=== PATIENT | male | born 1950 | race Caucasian/White ===

== ENCOUNTER 2023-06-16 07:35 | Emergency (ER) | payer OTHER ==
--- OUTSIDE RECORDS SUMMARY | 2023-06-16 07:41 | XMS REPORT | Continuity of Care Document ---
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 rosuvastati Yes 10mg 10 mg, Univ ers n (CRESTOR) 03-06 Oral, QHS, it y of tablet 10 02:00: First dose [place] mg 00 on [facility] 03/05/23 at Branch 2100, Until Discontinu ed, Routine NaCl 0.9% 2022- No 1000mL at 100 Uni vers (NS) IV 03-05 mL/hr, IV ity of infusion 23:15: 02:14 Infusion, Masoud as 1,000 mL 00 :39 CONTINUOUS Medic al , Starting Branch on Sun03/05/23 at 1815, Until [facility] 03/05/23 at 2114, Routine acetaminoph No 975mg 975 mg, U nivers en 03-05 Oral, ONCE ity of (TYLENOL) 23:15: 22:34 NOW, 1 [place] tablet 975 00 :00 dose, On Medic al mg [facility] 03/05/23 at 1815, TATIANA NaCl 0.9% 2022- No 1000mL at 999 Uni vers (NS) bolus 03-05 mL/hr, ity of infusion 22:15: 23:20 1,000 mL, Masoud as 1,000 mL 00 :00 IV Medical Piggyback, Branch ONCE, 1 dose, On Sun03/05/23 at 1715, STAT acetaminoph 2022- Yes 650mg 650 mg, Un arabella en 03-05 Oral, ity of (TYLENOL) 22:08: Q6HPRN, [place] tablet 650 39 Starting Medic al mg on Sun Branch 03/05/23 at 1708, Until Discontinu ed, Routine, Pain (scale 1-3) non-formula 2022-0 Yes epto Memori a ry 4-18 injection, l 17:02: Refill(s) Tank 00 0 non-formula 2022-0 Yes epto Memori a ry 4-18 injection, l 17:02: Refill(s) [place] 00 0 non-formula 2022-0 Yes epto Memori a ry 4-18 injection, l 17:02: Refill(s) Tank 00 0 non-formula 2022-0 Yes epto Memori a ry 4-18 injection, l 17:02: Refill(s) Tank 00 0 non-formula 2022-0 Yes epto Memori a ry 4-18 injection, l 17:02: Refill(s) Tank 00 0 non-formula 2022-0 Yes epto Memori a ry 4-18 injection, l 17:02: Refill(s) [place] 00 0 thiamine 2022-0 Yes 100 mg = 1 Mem oria 100 mg oral 2-06 tab, PO, l tablet 15:03: Daily, X [place] 90 day, # 90 tab, 1 Refill(s), Pharmacy: [id number], 177.8, cm, 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, Height, 78.182, kg, 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, Weight thiamine 2022-0 Yes 100 mg = 1 Mem oria 100 mg oral 2-06 tab, PO, l tablet 15:03: Daily, X Tank 90 day, # 90 tab, 1 Refill(s), Pharmacy: [id number], 177.8, cm, 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, Height, 78.182, kg, 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, Weight thiamine 2022-0 Yes 100 mg = 1 Mem oria 100 mg oral 2-06 tab, PO, l tablet 15:03: Daily, X Tank 00 90 day, # 90 tab, 1 Refill(s), Pharmacy: [id number], 177.8, cm, 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, Height, 78.182, kg, 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, Weight thiamine 2022-0 Yes 100 mg = 1 Mem oria 100 mg oral 2-06 tab, PO, l tablet 15:03: Daily, X [place] day, # 90 tab, 1 Refill(s), Pharmacy: [id number], 177.8, cm, 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, Height, 78.182, kg, 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, Weight thiamine 2022-0 Yes 100 mg = 1 Mem oria 100 mg oral 2-06 tab, PO, l tablet 15:03: Daily, X [place] day, # 90 tab, 1 Refill(s), Pharmacy: [id number], 177.8, cm, 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, Height, 78.182, kg, 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, Weight thiamine 2022-0 Yes 100 mg = 1 Mem oria 100 mg oral 2-06 tab, PO, l tablet 15:03: Daily, X [place] day, # 90 tab, 1 Refill(s), Pharmacy: [id number], 177.8, cm, 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, Height, 78.182, kg, 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, Weight levETIRAcet 2022-0 Yes 1,000 mg = Memoria am 500 mg 11-09 2 tab, PO, l oral tablet 17:25: TID, TAKE H erm 2 TABLETS BY MOUTH THREE TIMES DAILY, # 540 tab, 1 Refill(s), Pharmacy: [id number], 177.8, cm, 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, Height, 78.182, kg, 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, Weight lamoTRIgine 2022-0 Yes See Memori a 100 mg oral 1-26 Instructio l tablet 17:25: ns, 2 Tank 00 tab po bid, # 90 tab, 1 Refill(s), Pharmacy: [id number], 177.8, cm, 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, Height, 78.182, kg, 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, Weight levETIRAcet 2022-0 Yes 1,000 mg = Memoria am 500 mg 1-26 2 tab, PO, l oral tablet 17:25: TID, TAKE H [place] 00 2 TABLETS BY MOUTH THREE TIMES DAILY, # 540 tab, 1 Refill(s), Pharmacy: [id number], 177.8, cm, 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, Height, 78.182, kg, 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, Weight lamoTRIgine 2022-0 Yes See Memori a 100 mg oral 1-26 Instructio l tablet 17:25: ns, 10/16 [place] 00 tab po bid, # 90 tab, 1 Refill(s), Pharmacy: [id number], 177.8, cm, 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, Height, 78.182, kg, 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, Weight lamoTRIgine 2022-0 Yes See Memori a 100 mg oral 1-26 Instructio l tablet 17:25: ns, 2 Tank 00 tab po bid, # 90 tab, 1 Refill(s), Pharmacy: [id number], 177.8, cm, 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, Height, 78.182, kg, 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, Weight levETIRAcet 2022-0 Yes 1,000 mg = Memoria am 500 mg 1-26 2 tab, PO, l oral tablet 17:25: TID, TAKE H [place] 00 2 TABLETS BY MOUTH THREE TIMES DAILY, # 540 tab, 1 Refill(s), Pharmacy: [id number], 177.8, cm, 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, Height, 78.182, kg, 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, Weight levETIRAcet 2022-0 Yes 1,000 mg = Memoria am 500 mg 1-26 2 tab, PO, l oral tablet 17:25: TID, TAKE H [place] 00 2 TABLETS BY MOUTH THREE TIMES DAILY, # 540 tab, 1 Refill(s), Pharmacy: [id number], 177.8, cm, 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, Height, 78.182, kg, 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, Weight lamoTRIgine 2022-0 Yes See Memori a 100 mg oral 1-26 Instructio l tablet 17:25: ns, 10/16 Tank 00 tab po bid, # 90 tab, 1 Refill(s), Pharmacy: [id number], 177.8, cm, 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, Height, 78.182, kg, 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, Weight levETIRAcet 0 Yes 1,000 mg = Memoria am 500 mg 1-26 2 tab, PO, l oral tablet 17:25: TID, TAKE H [place] 00 2 TABLETS BY MOUTH THREE TIMES DAILY, # 540 tab, 1 Refill(s), Pharmacy: [id number], 177.8, cm, 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, Height, 78.182, kg, 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, Weight lamoTRIgine 2022-0 Yes See Memori a 100 mg oral 1-26 Instructio l tablet 17:25: ns, 10/16 [place] 00 tab po bid, # 90 tab, 1 Refill(s), Pharmacy: [id number], 177.8, cm, 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, Height, 78.182, kg, 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, Weight levETIRAcet 0 Yes 1,000 mg = Memoria am 500 mg 1-26 2 tab, PO, l oral tablet 17:25: TID, TAKE H [place] 00 2 TABLETS BY MOUTH THREE TIMES DAILY, # 540 tab, 1 Refill(s), Pharmacy: [id number], 177.8, cm, 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, Height, 78.182, kg, 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, Weight lamoTRIgine 2022-0 Yes See Memori a 100 mg oral 1-26 Instructio l tablet 17:25: ns, 12 Tank 00 tab po bid, # 90 tab, 1 Refill(s), Pharmacy: [id number], 177.8, cm, 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, Height, 78.182, kg, 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, Weight LaMICtal 2022-0 Yes 200 mg = 1 Mem oria 200 mg oral 1-26 tab, PO, l tablet 17:24: BID, # 180 [place] nn 00 tab, 1 Refill(s), Pharmacy: [facility], 177.8, cm, 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, Height, 78.182, kg, 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, Weight LaMICtal 2022-0 Yes 200 mg = 1 Mem oria 200 mg oral 1-26 tab, PO, l tablet 17:24: BID, # 180 [place] nn 00 tab, 1 Refill(s), Pharmacy: [facility], 177.8, cm, 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, Height, 78.182, kg, 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, Weight LaMICtal 2022-0 Yes 200 mg = 1 Mem oria 200 mg oral 1-26 tab, PO, l tablet 17:24: BID, # 180 [place] nn 00 tab, 1 Refill(s), Pharmacy: [id number], 177.8, cm, 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, Height, 78.182, kg, 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, Weight LaMICtal 2022-0 Yes 200 mg = 1 Mem oria 200 mg oral 1-26 tab, PO, l tablet 17:24: BID, # 180 [place] nn 00 tab, 1 Refill(s), Pharmacy: [id number], 177.8, cm, 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, Height, 78.182, kg, 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, Weight LaMICtal Yes 200 mg = 1 Mem oria 200 mg oral 1-26 tab, PO, l tablet 17:24: BID, # 180 [place] nn 00 tab, 1 Refill(s), Pharmacy: [id number], 177.8, cm, 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, Height, 78.182, kg, 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, Weight LaMICtal Yes 200 mg = 1 Mem oria 200 mg oral -26 tab, PO, l tablet 17:24: BID, # 180 [place] nn 00 tab, 1 Refill(s), Pharmacy: [id number], 177.8, cm, 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, Height, 78.182, kg, 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, Weight Metoprolol Yes TAKE 1 Memor ia Succinate - TABLET BY l ER 25 mg 16:45: MOUTH ONCE Her mckeon oral 00 DAILY tablet, extended release warfarin 1 Yes TAEK 0.5MG M emoria mg oral -26 ON l tablet 16:45: SUN/TUES/S [place] nn 00 AT AND 1 MG ALL OTHER DAYS amLODIPine Yes 5 mg = 1 Mem oria 5 mg oral -26 tab, PO, l tablet 16:45: Daily, # [place] 00 30 tab, 0 Refill(s) Non-Formula Yes Iron, Fish Memoria ry Home 11-09 Oil, Vit l Medication 16:45: D3, Tank 00 Senna-S, Refill(s) 0 Metoprolol Yes TAKE 1 Memor ia Succinate -26 TABLET BY l ER 25 mg 16:45: MOUTH ONCE Her [place] oral 00 DAILY tablet, extended release warfarin Yes TAEK 0.5MG M emoria mg oral -26 ON l tablet 16:45: SUN/TUES/S [place] nn 00 AT AND 1 MG ALL OTHER DAYS amLODIPine 0 Yes 5 mg = 1 Mem oria 5 mg oral -26 tab, PO, l tablet 16:45: Daily, # [place] 00 30 tab, 0 Refill(s) Non-Formula Yes Iron, Fish Memoria ry Home 11-09 Oil, Vit l Medication 16:45: D3, [place] 00 Senna-S, Refill(s) 0 Metoprolol Yes TAKE 1 Memor ia Succinate 11-09 TABLET BY l ER 25 mg 16:45: MOUTH ONCE Her [place] oral 00 DAILY tablet, extended release warfarin Yes TAEK 0.5MG M emoria mg oral 11-09 ON l tablet 16:45: SUN/TUES/S [place] nn 00 AT AND 1 MG ALL OTHER DAYS amLODIPine Yes 5 mg = 1 Mem oria 5 mg oral 11-09 tab, PO, l tablet 16:45: Daily, # [place] 00 30 tab, 0 Refill(s) Non-Formula Yes Iron, Fish Memoria ry Home 11-09 Oil, Vit l Medication 16:45: D3, Tank 00 Senna-S, Refill(s) 0 Metoprolol Yes TAKE 1 Memor ia Succinate 11-09 TABLET BY l ER 25 mg 16:45: MOUTH ONCE Her [place] oral 00 DAILY tablet, extended release warfarin Yes TAEK 0.5MG M emoria mg oral 11-09 ON l tablet 16:45: SUN/TUES/S [place] nn 00 AT AND 1 MG ALL OTHER DAYS amLODIPine 0 Yes 5 mg = 1 Mem oria 5 mg oral 11-09 tab, PO, l tablet 16:45: Daily, # Tank 00 30 tab, 0 Refill(s) Non-Formula Yes Iron, Fish Memoria ry Home 11-09 Oil, Vit l Medication 16:45: D3, Tank 00 Senna-S, Refill(s) 0 Metoprolol Yes TAKE 1 Memor ia Succinate - TABLET BY l ER 25 mg 16:45: MOUTH ONCE Her [place] oral 00 DAILY tablet, extended release warfarin Yes TAEK 0.5MG M emoria mg oral 11-09 ON l tablet 16:45: SUN/TUES/S [place] 00 AT AND 1 MG ALL OTHER DAYS amLODIPine Yes 5 mg = 1 Mem oria 5 mg oral 1-26 tab, PO, l tablet 16:45: Daily, # Tank 00 30 tab, 0 Refill(s) Non-Formula Yes Iron, Fish Memoria ry Home 11-09 Oil, Vit l Medication 16:45: D3, [place] 00 Senna-S, Refill(s) 0 Metoprolol Yes TAKE 1 Memor ia Succinate 11-09 TABLET BY l ER 25 mg 16:45: MOUTH ONCE Her [place] oral DAILY tablet, extended release warfarin Yes TAEK 0.5MG M emoria mg oral 11-09 ON l tablet 16:45: SUN/TU/S [place] 00 AT AND 1 MG ALL OTHER DAYS amLODIPine Yes 5 mg = 1 Mem oria 5 mg oral 11-09 tab, PO, l tablet 16:45: Daily, # [place] 00 30 tab, 0 Refill(s) Non-Formula Yes Iron, Fish Memoria ry Home 11-09 Oil, Vit l Medication 16:45: D3, [place] 00 Senna-S, Refill(s) 0 rosuvastati 2022-0 Yes 20 mg = 1 M emoria n 20 mg - tab, PO, l oral tablet 16:44: Bedtime, # [place] 00 60 tab, 0 Refill(s) lisinopril 2022-0 Yes 10 mg = 1 Me moria 10 mg oral - tab, PO, l tablet 16:44: Daily, # Tank 00 90 tab, 0 Refill(s) rosuvastati 2022-0 Yes 20 mg = 1 M emoria n 20 mg - tab, PO, l oral tablet 16:44: Bedtime, # [place] 00 60 tab, 0 Refill(s) lisinopril 2022-0 Yes 10 mg = 1 Me moria 10 mg oral -26 tab, PO, l tablet 16:44: Daily, # Tank 00 90 tab, 0 Refill(s) rosuvastati 2022-0 Yes 20 mg = 1 M emoria n 20 mg -26 tab, PO, l oral tablet 16:44: Bedtime, # [place] 00 60 tab, 0 Refill(s) lisinopril 2023-0 Yes 10 mg = 1 Me moria 10 mg oral 1-26 tab, PO, l tablet 16:44: Daily, # Tank 00 90 tab, 0 Refill(s) rosuvastati 2023-0 Yes 20 mg = 1 M emoria n 20 mg 1-26 tab, PO, l oral tablet 16:44: Bedtime, # Tank 00 60 tab, 0 Refill(s) lisinopril 2023-0 Yes 10 mg = 1 Me moria 10 mg oral 1-26 tab, PO, l tablet 16:44: Daily, # Tank 00 90 tab, 0 Refill(s) rosuvastati 2023-0 Yes 20 mg = 1 M emoria n 20 mg 1-26 tab, PO, l oral tablet 16:44: Bedtime, # Tank 00 60 tab, 0 Refill(s) lisinopril 2023-0 Yes 10 mg = 1 Me moria 10 mg oral 1-26 tab, PO, l tablet 16:44: Daily, # [place] 00 90 tab, 0 Refill(s) rosuvastati 2023-0 Yes 20 mg = 1 M emoria n 20 mg 1-26 tab, PO, l oral tablet 16:44: Bedtime, # [place] 00 60 tab, 0 Refill(s) lisinopril 2023-0 Yes 10 mg = 1 Me moria 10 mg oral 1-26 tab, PO, l tablet 16:44: Daily, # Tank 00 90 tab, 0 Refill(s) Vital Signs Vital Name Observation Time Observation Value Comments Source Systolic blood 2023-05-21 16:32:00 160 [facility] Diastolic blood 2023-05-21 16:32:00 72 mm[Hg] [facility] 2023-05-21 16:32:00 61 /min [facility] Respiratory rate 2023-05-21 16:30:00 19 /min [facility] height 2023-05-21 16:30:00 177.8 cm [facility] Body weight 2023-05-21 16:30:00 75.751 kg [facility] BMI 2023-05-21 16:30:00 23.96 kg/m2 [facility] Oxygen saturation in 2023-05-21 16:30:00 98 /min [facility] Arterial blood by [facility] Pulse oximetry Branch Systolic blood 2023-03-12 17:46:00 121 mm[Hg] Univer sity of pressure [facility] Diastolic blood 2023-03-12 17:46:00 79 mm[Hg] Unive rsity of pressure [facility] Heart rate 2023-03-12 17:46:00 79 [facility] 2023-03-12 17:46:00 36.67 Zaira Univ ersity of [facility] Respiratory rate 2023-03-12 17:46:00 18 /min [facility] in 2023-03-12 17:46:00 96 /min [facility] Arterial blood by [facility] Pulse oximetry Branch Body weight 2023-03-12 08:28:00 74.98 kg [facility] BMI 2023-03-12 08:28:00 23.72 kg/m2 [facility] Body height 2023-03-06 01:12:00 177.8 cm [facility] Systolic (mm Hg) 2023-04-27 16:41:00 Gee angelyl Tank Diastolic (mm Hg) 2023-04-27 16:41:00 Mem orial Tank Heart Rate 2023-04-27 16:41:00 Memorial Tank Systolic (mm Hg) 2023-01-30 16:34:00 Geedarrel hernandez Tank Diastolic (mm Hg) 2023-01-30 16:34:00 Mem orial [place] Heart Rate 2023-01-30 16:34:00 Memorial [place] Height 2023-01-30 16:34:00 5 [ft_i] Memorial Tank Weight 2023-01-30 16:34:00 Memorial Tank BMI Calculated 2023-01-30 16:34:00 Memori al [place] BMI Calculated 2022-12-19 17:11:00 Norma al [place] Systolic (mm Hg) 2022-12-19 17:11:00 Gee rial Tank Diastolic (mm Hg) 2022-12-19 17:11:00 Mem orial Tank Heart Rate 2022-12-19 17:11:00 Memorial [place] Height 2022-12-19 17:11:00 5 [ft_i] Memorial [place] Weight 2022-12-19 17:11:00 Memorial [place] Systolic (mm Hg) 2022-11-09 16:38:00 Gee hernandez [place] Diastolic (mm Hg) 2022-11-09 16:38:00 Mem orial [place] Heart Rate 2022-11-09 16:38:00 Memorial Tank Height 2022-11-09 16:38:00 5 [ft_i] Memorial [place] Weight 2022-11-09 16:38:00 Memorial [place] BMI Calculated 2022-11-09 16:38:00 Kathyori al [place] Procedures Procedure Date / Time Performing Clinician Source Performed XR CHEST 2 VW 2023-05-30 16:24:00 [facility] ASSIGNMENT OF BENEFITS 2023-05-21 16:20:21 Doctor Unassigned, Un [facility] BASIC METABOLIC PANEL (NA, 2023-03-12 08:40:00 Yani Lynch [facility] K, CL, CO2, GLUCOSE, BUN, Medica l Branch CREATININE, CA) CBC WITH DIFF 2023-03-12 08:40:00 Yani Lynch [facility] PROTHROMBIN TIME / INR 2023-03-12 08:40:00 Minh Landry [facility] BASIC METABOLIC PANEL (NA, 2023-03-11 09:17:00 Yani Lynch [facility] K, CL, CO2, GLUCOSE, BUN, Medica l Branch CREATININE, CA) CBC WITH DIFF 2023-03-11 09:17:00 Yani Lynch [facility] PROTHROMBIN TIME / INR 2023-03-11 09:17:00 Amy Lancaster [facility] XR CHEST 1 VW 2023-03-10 13:39:18 Minh Landry [facility] BASIC METABOLIC PANEL (NA, 2023-03-10 09:56:00 Minh Landry [facility] K, CL, CO2, GLUCOSE, BUN, Medica l Branch CREATININE, CA) CBC WITH DIFF 2023-03-10 09:56:00 Minh Landry [facility] PROTHROMBIN TIME / INR 2023-03-10 09:56:[address] [facility] TROPONIN I 2023-03-09 22:20:00 Minh Landry [facility] TRANSFUSE PACKED RBC 2023-03-09 18:11:00 Minh Landry [facility] PREPARE PACKED RBC 2023-03-09 18:06:36 Minh Landry [facility] HB ECG ROUTINE & RHYTHM 2023-03-09 17:12:12 [facility]23-03-09 15:11[facility] 2023-03-09 15:11:00 [facility] BASIC [facility]ABOLIC PANEL (NA, 2023-03-09 08:27:00 Minh Landry [facility] K, CL, CO2, GLUCOSE, BUN, [facility] CREATININE, CA) CBC WITH DIFF 2023-03-09 08:27:00 Minh Landry [facility] PROTHROMBIN TIME / INR 2023-03-09 08:27:00 Amy Lancaster [facility] N-TERMINAL PRO-BNP 2023-03-09 08:27:00 Minh Landry [facility] BASIC METABOLIC PANEL (NA, 2023-03-08 09:43:00 Yani Lynch [facility] K, CL, CO2, GLUCOSE, BUN, [facility] CREATININE, CA) CBC WITH DIFF 2023-03-08 09:43:00 Yani Lynch [facility] PROTHROMBIN TIME / INR 2023-03-08 09:43:00 Amy Lancaster [facility] BLOOD CULTURE SCREEN 2023-03-07 19:45:[address] [facility] BLOOD CULTURE SCREEN 2023-03-07 17:21:00 Syde, Yani Judith [facility] PROTHROMBIN TIME / INR 2023-03-07 17:20:00 Annie Gilmore [facility] CT THORAX WO CONTRAST 2023-03-07 16:09:36 [facility] BASIC METABOLIC PANEL (NA, 2023-03-07 10:06:00 Yani Lynch [facility] K, CL, CO2, GLUCOSE, BUN, Medica Branch CREATININE, CA) CBC WITH DIFF 2023-03-07 10:06:00 Yani Lynch [facility] PROTEIN CREAT RATIO URINE 2023-03-06 22:40:00 Dayday Olsen [facility] URIC ACID 2023-03-06 18:39:00 Dayday Olsen [facility] CORTISOL AM 2023-03-06 18:39:00 Dayday Olsen [facility] INTACT PTH CALCIUM GROUP 2023-03-06 18:39:00 Dayday Olsen [facility] PROTHROMBIN TIME / INR 2023-03-06 18:39:00 Amy Lancaster [facility] TRANSTHORACIC ECHO (TTE) 2023-03-06 13:40:00 Jacobo Donaldson [facility] US RETROPERITONEAL 2023-03-06 12:30:00 Jacobo Donaldson [facility] PHOSPHORUS 2023-03-06 10:12:00 Jacobo Donaldson [facility] MAGNESIUM 2023-03-06 10:12:00 Jacobo Donaldson [facility] TROPONIN I 2023-03-06 10:12:00 Jacobo Donaldson [facility] HEPATIC FUNCTION PANEL 2023-03-06 10:12:00 Jacobo Donaldson [facility] ([id number]) (ALB,T.PRO,BIL Medical [place] T,BU/BC,ALT,AST,ALK PHOS) BASIC METABOLIC PANEL (NA, 2023-03-06 10:12:00 Jacobo Donaldson [facility] K, CL, CO2, GLUCOSE, BUN, Medica l Branch CREATININE, CA) CBC WITH DIFF 2023-03-06 10:12:00 Jacobo Donaldson [facility] KEPPRA (LEVETIRACETAM) 2023-03-06 10:12:00 Ulisses [facility] N-TERMINAL PRO-BNP 2023-03-06 10:12[facility]00 [facility] 2023-03-06 03:07:00 Lotus [facility] PROCALCITONIN 2023-03-06 03:07:00 [facility]FIR[facility] (LAB 2023-03-05 23:28:00 Jacobo Doanldson [facility] RAPID INFLUENZA A/B 2023-03-05 22:22:00 [facility], LEVEL 2023-03-05 22:19:00 Jacobo Donaldson [facility] FOLATE 2023-03-05 22:19:00 Ltous Jacobo [facility] TROPONIN I 2023-03-05 22:19:00 Stan [facility] DIFF CONSULT BY 2023-03-05 22:19:00 Lotus [facility] CBC WITH DIFF 2023-03-05 22:19:00 Lotus [facility] VITAMIN D, 25-OH 2023-03-05 22:19:00 Lotus [facility] DIFF CONSULT 2023-03-05 22:19:00 Jacobo Donaldson [facility] INTERPRETATION [facility] XR CHEST 1 VW 2023-03-05 22:18:43 Stan [facility] PROTHROMBIN TIME / INR 2023-03-05 21:58:00 Stan [facility] ACTIVATED PARTIAL THRMPLAS 2023-03-05 21:58:00 Jacobo Donaldson [facility] HB ABO GROUPING 2023-03-05 21:43:00 Stan, [facility] EKG-12 LEAD 2023-03-05 21:23:10 Lotus [facility] URINALYSIS 2023-03-05 20:35:00 Stan [facility] ASSIGNMENT OF BENEFITS 2023-03-05 19:59:23 Doctor Unassigned, [facility] NOTICE OF PRIVACY 2023-03-05 19:58:53 Doctor Unassigned, [facility] PRACTICES [facility] CONSENT/REFUSAL FOR 2023-03-05 19:58:36 Doctor Unassigned, [facility] DIAGNOSIS AND TREATMENT [place] [facility] MAGNESIUM 2023-03-05 19:54:00 Stan [facility] FERRITIN SERUM 2023-03-05 19:54:00 Lotus [facility] TROPONIN I 2023-03-05 19:54:00 Stan [facility] THYROID STIMULATING 2023-03-05 19:54:00 Jacobo oDnaldson [facility] HORMONE [facility] Branch COMP. METABOLIC PANEL 2023-03-05 19:54:00 Les Pierce [facility] ([id number]) [facility] IRON PANEL 2023-03-05 19:54:00 Jacobo Donaldson [facility] CBC WITH DIFF 2023-03-05 19:54:00 Stan [facility] RETICULOCYTES AUTOMATED 2023-03-05 19:54:00 Jacobo Donaldson [facility] N-TERMINAL PRO-BNP 2023-03-05 19:54:00 Les Pierce [facility] COVID-19 (ID NOW RAPID 2023-03-05 19:54:00 Stan [facility] TESTING) Medical Branch LAB ONLY COVID 2023-03-05 19:54:00 Stan Les [facility] INTERPRETATION [facility] Carotid artery [facility] assessment<sup>1</sup> Valves of heart and [facility] operations<sup>2</sup> Encounters Start End Encounter Admission Attending Care Care Encounter Source Date/Time Date/Time Type Type Clinicians Facility Department ID 2023-08-09 2023-08-09 Outpatient MHIE MHIE [id number] [facility] 13:45:00 13:45:00 06 royal Tank 2023-08-09 2023-08-09 Outpatient MHIE MHIE [id number] Memoria 13:45:00 13:45:00 06 royal Tank 2023-05-30 2023-05-30 Outpatient R NICHOLE ALFARO [facility] 10 [id number] Univers 11:00:00 23:59:00 NICHOLE ALFARO i ty of [facility] 2023-05-30 2023-05-30 Hospital [facility] 1.2.840.114 [id number] Univers 11:00:00 23:59:00 Encounter [facility] 350.1.13.10 ity of [place] 4.2.7.2.686 Masoud as EMERY?BLEA [id number] Ri dicmagalis MENDEZEY [address] [place] [facility] 2023-05-21 2023-05-21 Outpatient R NICHOLE ALFARO [facility] 10 [id number] Univers 11:30:00 11:45:57 NICHOLE ALFARO i ty of [facility] 2023-05-21 2023-05-21 Office [facility] 1.2.840.114 [id number] Univers 11:30:00 11:45:57 Visit [facility] 350.1.13.10 i ty [facility] 4[place]2.7.2.[place] [id number] Ri dical KHADAR 085 [facility] 2023-05-21 2023-05-21 Orders Doctor MERI 1.2.840.114 [id number] Univers 00:00:00 00:00:00 Only Unassigned, JOSELYN 350.1.13.10 ity of [place] [facility] 4.2.7.2.686 Masoud as [id number] [address] 2023-04-27 2023-04-28 Outpatient MHIE MNA [id number] Memoria 16:45:00 04:59:59 Neurology 05 l Deja Fu 2023-04-27 2023-04-28 Outpatient MHIE MNA [id number] Memoria 16:45:00 04:59:59 Neurology 05 l Deja Fu 2023-04-27 2023-04-27 Outpatient JOANNE SimmsSCHER MHMISCHER [id number] 11:45:00 23:59:59 Vinod Mireya Roque 2023-04-27 2023-04-27 Outpatient MHIE MHIE [id number] Memoria 11:45:00 11:45:00 05 royal Fu 2023-03-12 2023-03-29 Inpatient 3 [place] [id number] [facility] 17:29:00 10:15:00 JAMESON 0529 Health Rehabil itation Jeana calero 2023-03-14 2023-03-14 Transition ADRIA Mckoy 1.2.840.114 [id number] Univers 00:00:00 00:00:00 of Care Vivian GUERRERO 350.1.13.10 it y of [place] 4.2.7.2.686 [facility] [id number] [facility] [address] 2023-03-05 2023-03-12 Hospital Stan, Les [facility] 1.2.840. 114 [id number] Univers 14:04:00 16:15:00 Encounter Jacobo Donaldson 350.1.13.10 ity of [place] 4.2.7.2.686 [facility] [id number] [facility] 0[address] Branch 2023-03-05 2023-03-12 Inpatient X BLAISE [facility] [id number] Univers 14:04:00 16:15:00 DACIA hassan [facility] 2023-01-30 2023-01-31 Outpatient MHIE MNA [id number] Memoria 16:30:00 04:59:59 Neurology 04 l Deja Gantann 2023-01-30 2023-01-31 Outpatient MHIE MNA [id number] Memoria 16:30:00 04:59:59 Neurology 04 l Deja Fu 2023-01-30 2023-01-30 Outpatient ANETTE Simms MHMISCHER [id number] 11:30:00 23:59:59 Vinod Shanel Roque 2023-01-30 2023-01-30 Outpatient MHIE MHIE [id number] Memoria 11:30:00 11:30:00 04 royal Fu 2022-12-19 2022-12-20 Outpatient MHIE MNA [id number] Memoria 17:15:00 05:59:59 Neurology 02 l Deja Fu 2022-12-19 2022-12-20 Outpatient MHIE MNA [id number] Memoria 17:15:00 05:59:59 Neurology 02 l Deja Fu 2022-12-19 2022-12-19 [facility] [id number] 11:15:00 23:59:59 Vinod Jude 2022-12-19 2022-12-19 Outpatient MHIE MHIE [id number] Memoria 11:15:00 11:15:00 02 royal Fu 2022-12-08 2022-12-09 Outpatient MHIE MNA [id number] Memoria 19:00:00 05:59:59 Neurology 03 l Deja Fu 2022-12-08 2022-12-09 Outpatient MHIE MNA [id number] Memoria 19:00:00 05:59:59 Neurology 03 l Deja Fu 2022-12-08 2022-12-08 [facility] [id number] 13:00:00 23:59:59 Vinod 03 Jude 2022-12-08 2022-12-08 Outpatient MHIE MHIE [id number] Memoria 13:00:00 13:00:00 03 royal Fu 2022-11-09 2022-11-10 Outpatient MHIE MNA [id number] Memoria 16:30:00 05:59:59 Neurology 01 royal Fu 2022-11-09 2022-11-10 Outpatient MHIE MNA [id number] Memoria 16:30:00 05:59:59 Neurology 01 royal Fu 2022-11-09 2022-11-09 [facility] 213 [id number] 10:30:00 23:59:59 Vinod Jude 2022-11-09 2022-11-09 Outpatient MHIE MHIE [id number] Memoria 10:30:00 10:30:00 01 l Tank 2022-09-29 2022-09-29 Ambulatory MHIE MNA [id number] Memoria 19:30:00 19:30:00 Pre-Reg Neurology 00 l Deja Fu 2022-09-29 2022-09-29 Ambulatory MHIE MNA [id number] Memoria 19:30:00 19:30:00 Pre-Reg Neurology 00 l Deja Fu 2022-09-29 2022-09-29 Outpatient IE IE [id number] Memoria 13:30:00 13:30:00 00 l Tank 2022-09-29 2022-09-29 Outpatient [facility] [id number] 13:30:00 13:30:00 Vinod 00 Jude Results Test Description Test Time Test Comments Results Result Comments Source Prepare Packed RBC (in units), 1 Units 2023-03-09 18:06:36 Test Item Value Reference Range Interpretation Comme nts Cross Match Result (test code = Compatible 4409) ISBT Blood Type Code (test code = 6200 077904) Unit Blood Type (test code = 4410) A Pos Unit Number (test code = 4411) [id number] Blood Expiration Date & Time (test 895559404506 code = 013728) Status Information (test code = Issued 4411) Product Identification (test code = Red Blood Cells 4413) Product Code (test code = 4414) [id number] Performed at [facility] Laboratory Services - [facility] Blood [address] [place] [id number] Free: [phone] 266CLIA No. [id number] [facility] Center[facility]th[facility]bin Time / [id number] 11:49:07 Test Item Value Reference Range Interpretation Comments PROTIME PATIENT (test 17.8 See_Comment H [Auto mated message] code = 5964-2) The system [employer] generated this result transmitted ref erence range: 12.0 - 1 4.7 Seconds. The reference range was not used to int erpret this result as normal/abnormal . INR (test code = 6301-6) 1.5 Nor mal INR <1.1; Warfarin Therap eutic range 2.0 to 3. 0 or 2.5 to 3.5, dep ending upon the indica tions. Lab Interpretation (test Abnormal code = 20758-3) [facility] WITH [id number] 10:52:21 Test Item Value Reference Range Interpretation Comments WBC (test code = 2.99 See_Comment L [Automated 6690-2) message] The sy stem which generated this result transmitted reference range : 4.20 - 10.70 10*3/?L. The reference range was not used to interpret this result as normal/abnormal . RBC (test code = 2.27 See_Comment L [Automated 789-8) message] The sy stem which generated this result transmitted reference range : 4.26 - 5.52 10*6/?L. The reference range was not used to interpret this result as normal/abnormal . HGB (test code = 6.9 g/dL 12.2-16.4 L 718-7) HCT (test code = 19.9 % 38.4-49.3 L 4544-3) MCV (test code = 87.7 fL 81.7-95.6 787-2) MCH (test code = 30.4 pg 26.1-32.7 785-6) MCHC (test code = 34.7 g/dL 31.2-35.0 786-4) RDW-SD (test code = 47.7 fL 38.5-51.6 34926-2) RDW-CV (test code = 14.9 % 12.1-15.4 788-0) PLT (test code = 59 See_Comment L [Automated 777-3) message] The sy stem which generated this result transmitted reference range : 150 - 328 10*3/ ?L. The reference r walker was not used to interpret this result as normal/abnormal . MPV (test code = 10.7 fL 9.8-13.0 09977-5) IPF % (test code = 3.5 % 1.2-10.7 Platelet count 8493205660) measured by fluorescence method. NRBC/100 WBC (test 0.0 See_Comment [Automat ed code = 5916701213) message] The system which generated this result transmitted reference range : 0.0 - 10.0 /100 WBCs. The refer ence range was not u sed to interpret th is result as normal/abnormal . NRBC x10^3 (test code See_Comment [Auto mated = 4322505935) message] The s ystem which generated this result transmitted reference range : 10*3/?L. The reference range was not used to interpret this result as normal/abnormal . GRAN MAT (NEUT) % 67.0 % (test code = 770-8) IMM GRAN % (test code 1.30 % = 9412322927) LYMPH % (test code = 23.1 % 736-9) MONO % (test code = 7.0 % 5905-5) EOS % (test code = 1.3 % 713-8) BASO % (test code = 0.3 % 706-2) GRAN MAT x10^3(ANC) 2.00 10*3/uL 1.99-6.95 (test code = 6890463322) IMM GRAN x10^3 (test 0.04 10*3/uL 0.00-0.06 code = 7950418408) LYMPH x10^3 (test code 0.69 10*3/uL 1.09-3.23 L = 731-0) MONO x10^3 (test code 0.21 10*3/uL 0.36-1.02 L = 742-7) EOS x10^3 (test code = 0.04 10*3/uL 0.06-0.53 L 711-2) BASO x10^3 (test code 0.01-0.09 = 704-7) Lab Interpretation Abnormal (test code = 38891-5) [facility] [id number] 10:19:17 Test Item Value Reference Range Interpretation Comments NT-proBNP (test code = 63113 pg/mL <=125 H 9056281571) GISSEL (test code = GISSEL) Biotin has been reported to cause a negative bias, interpret results relative to patient's use of biotin. Lab Interpretation (test Abnormal code = 32404-6) [facility] Center[facility] MET[facility]OLIC PANEL (NA, K, CL, CO2, GLUCOSE, BUN, CREATININE, CA)2023-03-09 10:15:35 Test Item Value Reference Range Interpretation Comments NA (test code = 132 mmol/L 135-145 L 5860911182) K (test code = 4.0 mmol/L 3.5-5.0 1362423456) CL (test code = 102 mmol/L 98-108 4321155697) CO2 TOTAL (test code = 20 mmol/L 23-31 L 0565589199) AGAP (test code = 10 2-16 4314186558) BUN (test code = 34 mg/dL 7-23 H 3956997829) GLUCOSE (test code = 104 mg/dL 70-110 6522862272) CREATININE (test code = 2.76 mg/dL 0.60-1.25 H 7256278104) CALCIUM (test code = 8.7 mg/dL 8.6-10.6 5381413161) eGFR (test code = 22.6 mL/min/1.73m2 8704658529) GISSEL (test code = GISSEL) Association of Glomerular Filtration Rate (GFR) and Staging of Kidney Disease* + --+ --+ ------+| GFR (mL/min/1.73 m2) ?| With Kidney Damage ?| ?Without Kidney Damage+ --------+ --------+ +| ?>90 ?| ?Stage one ?| ? Normal ?+ ---+ ---+ -------+| ?60-89 ?| ?Stage two ?| ? Decreased GFR ? + --+ --+ ------+| ?30-59 ?| ?Stage three ?| ? Stage three ? + --+ --+ ------+| ?15-29 ?| ?Stage four ? | ? Stage four ?+ ---+ ---+ -------+| ?<15 (or dialysis) ? ?| ?Stage five ? | ? Stage five ?+ ---+ ---+ -------+ *Each stage assumes the associated GFR level has been in effect for at least three months. ?Stages 1 to 5, with or without kidney disease, indicate chronic kidney disease. Notes: Determination of stages one and two (with eGFR >59mL/min/1.73 m2) requires estimation of kidney damage for at least three months as defined by structural or functional abnormalities of the kidney, manifested by either:Pathological abnormalities or Markers of kidney damage (including abnormalities in the composition of the blood or urine or abnormalities in imaging tests). Lab Interpretation Abnormal (test code = 02460-4) [facility] CenterDIFF CONSULT [id number] 20:13:16 ABSOLUTE NEUTROPHILIA, LYMPHOPENIA AND EOSINOPENIA. NORMOCYTIC HYPERCHROMIC ANEMIA. THROMBOCYTOPENIA. NO CLUMPING IDENTIFIED.[facility] CenterFOLATE2023-05-23 07:43:38 Test Item Value Reference Range Interpretation Comments FOLATE SER (test code = 16.3 ng/mL 3.0-20.0 4422496956) Lab Interpretation (test code = Normal 79113-8) [facility] CenterVITAMIN B12, [id number] 06:00:10 Test Item Value Reference Range Interpretation Comments VIT B12 (test code = 653 pg/mL 240-930 8359160667) GISSEL (test code = GISSEL) Biotin has been reported to cause a positive bias, interpret results relative to patient's use of biotin. Lab Interpretation (test Normal code = 86904-6) [facility] CenterVITAMIN D, [id number] 05:54:05 Test Item Value Reference Range Interpretation Comments VIT D 25OH (test code = 55 ng/mL 25-80 12633-1) GISSEL (test code = GISSEL) Deficiency: <20 ng/mLInsufficiency : 20-24 ng/mLOptimal: 25-80 ng/mL Lab Interpretation (test Normal code = 63316-4) [facility] CenterCBC WITH [id number] 00:10:07 Test Item Value Reference Range Interpretation Comments WBC (test code = 9.20 See_Comment [Automated 0742-2) message] The sy stem which generated this result transmitted reference range : 4.20 - 10.70 10*3/?L. The reference range was not used to interpret this result as normal/abnormal . RBC (test code = 2.70 See_Comment L [Automated 771-8) message] The sy stem which generated this result transmitted reference range : 4.26 - 5.52 10*6/?L. The reference range was not used to interpret this result as normal/abnormal . HGB (test code = 8.4 g/dL 12.2-16.4 L 718-7) HCT (test code = 23.8 % 38.4-49.3 L 4544-3) MCV (test code = 88.1 fL 81.7-95.6 787-2) MCH (test code = 31.1 pg 26.1-32.7 785-6) MCHC (test code = 35.3 g/dL 31.2-35.0 H 786-4) RDW-SD (test code = 47.6 fL 38.5-51.6 78476-2) RDW-CV (test code = 15.4 % 12.1-15.4 788-0) PLT (test code = 54 See_Comment L [Automated 777-3) message] The sy stem which generated this result transmitted reference range : 150 - 328 10*3/ ?L. The reference r walker was not used to interpret this result as normal/abnormal . MPV (test code = 11.0 fL 9.8-13.0 51349-3) NRBC/100 WBC (test 0.0 See_Comment [Automat ed code = 3408540327) message] The system which generated this result transmitted reference range : 0.0 - 10.0 /100 WBCs. The refer ence range was not u sed to interpret th is result as normal/abnormal . NRBC x10^3 (test code See_Comment [Auto mated = 3415331029) message] The s ystem which generated this result transmitted reference range : 10*3/?L. The reference range was not used to interpret this result as normal/abnormal . GRAN MAT (NEUT) % 86.8 % (test code = 770-8) IMM GRAN % (test code 0.70 % = 3476850275) LYMPH % (test code = 5.5 % 736-9) MONO % (test code = 6.7 % 5905-5) EOS % (test code = 0.2 % 713-8) BASO % (test code = 0.1 % 706-2) GRAN MAT x10^3(ANC) 7.98 10*3/uL 1.99-6.95 H (test code = 6479160070) IMM GRAN x10^3 (test 0.06 10*3/uL 0.00-0.06 code = 0611171767) LYMPH x10^3 (test code 0.51 10*3/uL 1.09-3.23 L = 731-0) MONO x10^3 (test code 0.62 10*3/uL 0.36-1.02 = 742-7) EOS x10^3 (test code = 0.06-0.53 L 711-2) BASO x10^3 (test code 0.01-0.09 = 704-7) Lab Interpretation Abnormal (test code = 99560-5) [facility] CenterTROPONIN [id number] 23:49:36 Test Item Value Reference Range Interpretation Comments TROPONIN I (test code = 0.701 ng/mL <=0.034 H 4416759724) GISSEL (test code = GISSEL) Reference (Normal) Range (defined by the 99th percentile reference limit): <= 0.034 ng/mL Note: Cardiac troponin begins to rise 3-4 hours after the onset of ischemia. Repeat in 4-6 hours if the sample was drawn within 3-4 hours of the onset of the symptom and found normal. Diagnosis of myocardial injury is made with acute changes in cTn concentrations with at least one serial sample above the 99th percentile upper reference limit (URL), taken together with the patient's clinical presentation. Biotin has been reported to cause a negative bias, interpret results relative to patient's use of biotin. Lab Interpretation Abnormal (test code = 23585-7) [facility] CenterIRON [id number] 23:24:15 Test Item Value Reference Range Interpretation Comments IRON (test code = 6768167709) 16 ug/dL 50-160 L TIBC (test code = 4681762834) 210 ug/dL 250-410 L % FE SAT (test code = 6305310141) 8 % 20-50 L Lab Interpretation (test code = Abnormal 66135-7) [facility] CenterFERRITIN [id number] 23:14:57 Test Item Value Reference Range Interpretation Comments FERRITIN (test code = 138.0 ng/mL 18.0-464.0 5730177626) GISSEL (test code = GISSEL) Biotin has been reported to cause a negative bias, interpret results relative to patient's use of biotin. Lab Interpretation (test Normal code = 98442-4) [facility] CenterTHYROID STIMULATING [id number] 23:10:32 Test Item Value Reference Range Interpretation Comments TSH (test code = 1.40 See_Comment [Automated message] 1072183689) The system whic h generated this result transmitted ref erence range: 0.45 - 4 .70 mIU/L. The refe rence range was not u sed to interpret this result as normal/abnor mal. Lab Interpretation (test Normal code = 30774-0) [facility] CenterN-TERMINAL [id number] 23:09:10 Test Item Value Reference Range Interpretation Comments NT-proBNP (test code = 8220 pg/mL <=125 H 0019886087) GISSEL (test code = GISSEL) Biotin has been reported to cause a negative bias, interpret results relative to patient's use of biotin. Lab Interpretation (test Abnormal code = 21125-8) [facility] CenterRETICULOCYTES [id number] 22:37:52 Test Item Value Reference Range Interpretation Comments RETIC Count Automated 3.80 % 0.59-2.24 H (test code = 8359609148) RETIC Absolute Count 0.0977 See_Comment [Autom ated message] (test code = 4466770833) The system which generated this result transmitted ref erence range: 0.0260 - 0.1170 10*6/?L. The reference range was not used to int erpret this result as normal/abnormal . IRF % (test code = 23.90 % 2.00-19.10 H 2018469117) RETIC-HE (test code = 32.4 pg 27.3-36.4 9261246932) Lab Interpretation (test Abnormal code = 48811-7) [facility] CenterType and Screen - ONCE [id number] 22:09:00 Test Item Value Reference Range Interpretation Comments ABO & RH (test code = 20) A Positive IAT (test code = 1185) Negative [facility] CenterCBC WITH [id number] 21:18:57 Test Item Value Reference Range Interpretation Comments WBC (test code = 7.00 See_Comment [Automated 2890-2) message] The sy stem which generated this result transmitted reference range : 4.20 - 10.70 10*3/?L. The reference range was not used to interpret this result as normal/abnormal . RBC (test code = 2.58 See_Comment L [Automated 221-8) message] The sy stem which generated this result transmitted reference range : 4.26 - 5.52 10*6/?L. The reference range was not used to interpret this result as normal/abnormal . HGB (test code = 7.8 g/dL 12.2-16.4 L 718-7) HCT (test code = 22.8 % 38.4-49.3 L 4544-3) MCV (test code = 88.4 fL 81.7-95.6 787-2) MCH (test code = 30.2 pg 26.1-32.7 785-6) MCHC (test code = 34.2 g/dL 31.2-35.0 786-4) RDW-SD (test code = 47.0 fL 38.5-51.6 75862-3) RDW-CV (test code = 15.4 % 12.1-15.4 788-0) PLT (test code = 53 See_Comment L [Automated 777-3) message] The sy stem which generated this result transmitted reference range : 150 - 328 10*3/ ?L. The reference r walker was not used to interpret this result as normal/abnormal . MPV (test code = 10.7 fL 9.8-13.0 81931-9) IPF % (test code = 3.7 % 1.2-10.7 Platelet count 0200548483) measured by fluorescence method. NRBC/100 WBC (test 0.0 See_Comment [Automat ed code = 9888721282) message] The system which generated this result transmitted reference range : 0.0 - 10.0 /100 WBCs. The refer ence range was not u sed to interpret th is result as normal/abnormal . NRBC x10^3 (test code See_Comment [Auto mated = 2777868329) message] The s ystem which generated this result transmitted reference range : 10*3/?L. The reference range was not used to interpret this result as normal/abnormal . SEG % (test code = 85 % 33-76 H 50429-4) LYMPH % (test code = 8 % 14-54 L 79106-1) MONO % (test code = 7 % 0-4 H 94453-9) ANC (test code = 5.81 10*3/uL 1.99-6.95 753-4) PLT ESTIMATE (test Decreased Normal A code = 9317-9) Lab Interpretation Abnormal (test code = 57733-8) [facility] CenterTROPONIN [id number] 20:46:08 Test Item Value Reference Range Interpretation Comments TROPONIN I (test code = 0.659 ng/mL <=0.034 H 3359209698) GISSEL (test code = GISSEL) Reference (Normal) Range (defined by the 99th percentile reference limit): <= 0.034 ng/mL Note: Cardiac troponin begins to rise 3-4 hours after the onset of ischemia. Repeat in 4-6 hours if the sample was drawn within 3-4 hours of the onset of the symptom and found normal. Diagnosis of myocardial injury is made with acute changes in cTn concentrations with at least one serial sample above the 99th percentile upper reference limit (URL), taken together with the patient's clinical presentation. Biotin has been reported to cause a negative bias, interpret results relative to patient's use of biotin. Lab Interpretation Abnormal (test code = 47239-6) [facility] CenterMAGNESIUM2023-05-22 20:35:05 Test Item Value Reference Range Interpretation Comments MAGNESIUM (test code = 5825578468) 1.7 mg/dL 1.7-2.4 Lab Interpretation (test code = Normal 80560-9) [facility] CenterCOMP. METABOLIC PANEL (49294)2023-03-05 20:34:23 Test Item Value Reference Range Interpretation Comments NA (test code = 130 mmol/L 135-145 L 0468299970) K (test code = 4.4 mmol/L 3.5-5.0 9801117246) CL (test code = 97 mmol/L 98-108 L 5147213215) CO2 TOTAL (test code = 23 mmol/L 23-31 8386211039) AGAP (test code = 10 2-16 2572183491) BUN (test code = 32 mg/dL 7-23 H 3600349445) GLUCOSE (test code = 121 mg/dL 70-110 H 5638806411) CREATININE (test code = 2.58 mg/dL 0.60-1.25 H 0955097003) TOTAL BILI (test code = 0.7 mg/dL 0.1-1.1 1308159431) CALCIUM (test code = 8.8 mg/dL 8.6-10.6 7605814823) T PROTEIN (test code = 6.2 g/dL 6.3-8.2 L 2896423145) ALBUMIN (test code = 3.5 g/dL 3.5-5.0 5851032961) ALK PHOS (test code = 85 U/L 34-122 7616931279) ALTv (test code = 26 U/L 5-50 1742-6) AST(SGOT) (test code = 28 U/L 13-40 1372713061) eGFR (test code = 24.5 mL/min/1.73m2 7553632683) GISSEL (test code = GISSEL) Association of Glomerular Filtration Rate (GFR) and Staging of Kidney Disease* + --+ --+ ------+| GFR (mL/min/1.73 m2) ?| With Kidney Damage ?| ?Without Kidney Damage+ --------+ --------+ +| ?>90 ?| ?Stage one ?| ? Normal ?+ ---+ ---+ -------+| ?60-89 ?| ?Stage two ?| ? Decreased GFR ? + --+ --+ ------+| ?30-59 ?| ?Stage three ?| ? Stage three ? + --+ --+ ------+| ?15-29 ?| ?Stage four ? | ? Stage four ?+ ---+ ---+ -------+| ?<15 (or dialysis) ? ?| ?Stage five ? | ? Stage five ?+ ---+ ---+ -------+ *Each stage assumes the associated GFR level has been in effect for at least three months. ?Stages 1 to 5, with or without kidney disease, indicate chronic kidney disease. Notes: Determination of stages one and two (with eGFR >59mL/min/1.73 m2) requires estimation of kidney damage for at least three months as defined by structural or functional abnormalities of the kidney, manifested by either:Pathological abnormalities or Markers of kidney damage (including abnormalities in the composition of the blood or urine or abnormalities in imaging tests). Lab Interpretation Abnormal (test code = 43599-1) [facility]"
[2023-06-16 08:14] LABS: Absolute Lymphocytes (CBC) 0.9 K/uL (0.7-4.9); Hematocrit 25.5 % (39.6-49.0); Lymphocytes % 15.5 % (15.3-44.8); MCV 87.7 fL (80-100); MPV 7.2 fL (7.6-11.3); Platelets 75 thou/uL (152-406); RBC Red Blood Cell Count 2.91 M/uL (4.33-5.43)
[2023-06-16 08:25] LABS: Albumin 3.4 g/dL (3.4-5.0); Bilirubin Direct 0.2 mg/dL (0-0.2); Bilirubin Indirect, Calculated 0.2 mg/dL (0.2-0.8); Bilirubin Total 0.4 mg/dL (0.2-1.0); Magnesium 1.9 mg/dL (1.6-2.4); Potassium 4.2 mEq/L (3.5-5.1); Protein, Total 7.3 g/dL (6.4-8.2)
[2023-06-16 08:27] LABS: Troponin High Sensitivity 68.1 pg/mL (<58.9)
--- NOTE | 2023-06-16 08:33 | RAD REPORT ---
EXAM DESCRIPTION: CT - CTHCSPWOC - 06/16/2023 8:13 am CLINICAL HISTORY: SEIZURE COMPARISON: Head Brain Wo Cont dated 02/16/2023; Head Brain Wo Cont dated 06/06/2023 TECHNIQUE: Axial thin cut noncontrast CT images of the head were obtained. Axial thin cut noncontrast CT images of the cervical spine were obtained. Multiplanar reformatted images were generated and reviewed. All CT scans are performed using dose optimization technique as appropriate and may include automated exposure control or mA/KV adjustment according to patient size. FINDINGS: CT HEAD WITHOUT CONTRAST: No acute hemorrhage, hydrocephalus or evidence of an acute territorial infarct. Stable prominence of the extra-axial CSF spaces, with bilateral low-density hemispheric subdural collections, larger on th e left, measuring up to 7 millimeter in thickness, and up to 4 millimeter in thickness on the right. Stable encephalomalacia in the left parasagittal parietal region and left occipital lobe. Mild perive ntricular and deep white matter hypodensities, nonspecific, but suggestive of chronic small vessel is chemic changes.No areas of brain edema or midline shift. The paranasal sinuses and mastoids are clear.The calvarium is intact. CT CERVICAL SPINE WITHOUT CONTRAST: No fracture or subluxation.No prevertebral soft tissues swelling is identified. Mild to moderate dege nerative changes throughout the cervical spine. Bilateral dependent ground-glass opacities nonspecifi c. IMPRESSION: No acute traumatic intracranial or cervical spine findings. 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 Multilevel degenerative changes of the cervical spine.
--- NOTE | 2023-06-16 08:45 | RAD REPORT ---
EXAM DESCRIPTION: [place] Single View06/16/2023 8:30 am CLINICAL HISTORY: Seizure COMPARISON: No comparisons TECHNIQUE: Portable AP view of the chest. FINDINGS: Some blunting of the left costophrenic angle, could reflect a small effusion. Subtle patch y opacities in the retrocardiac space. Right lung is clear. No pneumothorax. 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 IMPRESSION: Left basilar patchy opacities, could reflect atelectasis or mild airspace disease, with possible small effusion versus pleural thickening.
[2023-06-16] MEDS ORDERED: ASPIRIN 81 MG CHEWABLE TABLET ONE (08:49)
[2023-06-16 09:12] LABS: Blood Morphology Comment NOT SEEN (NOT SEEN); Platelet Estimate DECR; White Blood Cell Scan OK (OK)
--- NOTE | 2023-06-16 10:04 | EDPHYS ---
Physician Documentation [facility] Name: Tyrone Lundy Age: 72 yrs Sex: Male : 1950 Arrival Date: 06/16/2023 Time: 07:35 Bed 5 Private MD: ED Physician Madi Jackson HPI: 06/16 08:12 This 72 yrs old Male presents to ER via EMS with complaints of Seizure. kdr 08:12 According to the patient's spouse, about 6 AM the patient was in his recliner which was kdr usual for him. She noted that initially he had some foot movement that was then followed by hand shaking and a more generalized shaking. This lasted for a brief period of time. The patient's spouse states that normally he has "staring" seizures. She stated that has been many years since he has had more of a [place] seizure. Patient did not have any subsequent or associated fall or injury. From my preliminary evaluation of the patient and in discussion with the spouse, the patient may be near his baseline in terms of communication and interaction. Patient is not in any acute distress on my initial evaluation. He responds with his name and/or date of to many questions. He does grossly follow commands.. Onset: The symptoms/episode began/occurred suddenly, just prior to arrival, at 06:00. Historical: - Allergies: 07:42 No Known Allergies; hb - Home Meds: 07:42 Keppra Oral [Active]; hb 08:17 Metropolol [Active]; rs5 08:18 rosuvastatin oral [Active]; Lisinopril Oral [Active]; rs5 07:46 Nifedipine Oral [Active]; rs5 - PMHx: 07:42 Seizure; CVA; HTN; hb 07:46 Melanoma; rs5 - Immunization history:: Adult Immunizations unknown. - Social history:: Smoking status: Patient denies any tobacco usage or history of. ROS: 08:06 Constitutional: The patient was unable to give a clear history. When questioned, he kdr most often replies with his name and date of for most all questions. He does follow commands though. 08:06 Unable to obtain ROS due to altered mental status. Exam: 08:06 Constitutional: This is a well developed, well nourished patient who is awake, alert, kdr and in no acute distress. Head/Face: Normocephalic, atraumatic. Eyes: Pupils equal round and reactive to light, extra-ocular motions intact. Lids and lashes normal. Conjunctiva and sclera are non-icteric and not injected. Cornea within normal limits. Periorbital areas with no swelling, redness, or edema. 12:02 ECG was reviewed by the Attending Physician. kdr Vital Signs: 07:40 BP 162 / 99; Pulse 81; Resp 16; Temp 98.6(O); Pulse Ox 98% on R/A; Weight 81.65 kg; hb Height 6 ft. 2 in. ; Pain 0/10; 07:50 BP 168 / 87; Pulse 80; Resp 17; Temp 97.8(O); Pulse Ox 99% ; rs5 08:30 BP 175 / 88; Pulse 75; Resp 17; Pulse Ox 99% on R/A; rs5 09:20 BP 153 / 79; Pulse 98; Resp 18; Pulse Ox 99% ; rs5 10:35 BP 167 / 73; Pulse 66; Resp 17; Pulse Ox 99% ; rs5 11:25 BP 149 / 104; Pulse 70; Resp 18; Pulse Ox 99% on R/A; rs5 12:24 BP 155 / 84; Pulse 68; Resp 17; Pulse Ox 99% on R/A; rs5 13:30 BP 148 / 84; Pulse 69; Resp 17; Pulse Ox 99% on R/A; rs5 14:41 BP 157 / 100; Pulse 76; Resp 17; Pulse Ox 98% on R/A; rs5 15:39 BP 145 / 82; Pulse 73; Resp 17; Pulse Ox 99% on R/A; rs5 16:20 BP 152 / 85; Pulse 77; Resp 17; Pulse Ox 99% on R/A; rs5 07:40 Body Mass Index 23.11 (81.65 kg, 187.96 cm) hb 07:40 Pain Scale: Adult hb [place] Coma Score: 07:46 Eye Response: spontaneous(4). Motor Response: obeys commands(6). Verbal Response: rs5 confused(4). Total: 14. MDM: 10:03 Patient medically screened. kdr 10:03 Data reviewed: vital signs, nurses notes. kdr 06/16 07:44 Order name: Basic Metabolic Panel; Complete Time: 09:17 kdr 06/16 07:44 Order name: CBC with Diff; Complete Time: 09:17 kdr 06/16 07:44 Order name: LFT's; Complete Time: 09:17 kdr 06/16 07:44 Order name: Magnesium; Complete Time: 09:17 kdr 06/16 07:44 Order name: NT PRO-BNP; Complete Time: 09:17 kdr 06/16 07:44 Order name: Troponin HS; Complete Time: 09:17 kdr 06/16 09:13 Order name: CBC Smear Scan; Complete Time: 09:17 EDMS 06/16 07:44 Order name: XRAY Chest (1 view); Complete Time: 09:17 kdr 06/16 07:44 Order name: CT Head C Spine; Complete Time: 09:17 kdr 06/16 07:44 Order name: EKG; Complete Time: 07:45 kdr 06/16 07:44 Order name: Cardiac monitoring; Complete Time: 08:03 kdr 06/16 07:44 Order name: EKG - Nurse/Tech; Complete Time: 08:03 kdr 06/16 07:44 Order name: IV Saline Lock; Complete Time: 08:03 kdr 06/16 07:44 Order name: Labs collected and sent; Complete Time: 08:03 kdr 06/16 07:44 Order name: O2 Per Protocol; Complete Time: 08:03 kdr 06/16 07:44 Order name: O2 Sat Monitoring; Complete Time: 08:03 kdr EC:02 Rate is 75 beats/min. Rhythm is irregularly irregular, A fib with No ectopy. QRS [place] kdr is Normal. MN interval is normal. QRS interval is normal. Clinical impression: Atrial Fibrillation. Administered Medications: 08:40 Drug: Aspirin PO Chewable Tablet 324 mg Route: PO; rs5 09:30 Follow up: Response: No adverse reaction rs5 11:56 Drug: Keppra IV 1000 mg Route: IV; Rate: calculated rate; Site: right hand; rs5 12:15 Follow up: Response: No adverse reaction rs5 Disposition Summary: 06/16/23 14:54 Transfer Ordered Transfer Location: [facility] kdr Reason: Higher level of care kdr Condition: Fair(06/16/23 14:54) kdr Problem: an acute exacerbation(06/16/23 14:54) kdr Symptoms: have improved(06/16/23 14:54) kdr Accepting Physician: Yamini(06/16/23 16:45) rs5 Diagnosis - Other seizures(06/16/23 14:54) kdr - Hypertensive heart disease without heart failure(06/16/23 14:55) kdr - Weakness kdr Forms: - Medication Reconciliation Form kdr - SBAR form kdr Signatures: Dispatcher [employer] EDMS Madi Jackson MD MD kdr Genoveva Danielle RN RN William Villalpando RN RN rs5 Corrections: (The following items were deleted from the chart) 14:53 10:03 Observation kdr kdr 14:53 10:03 Byron Armando kdr kdr 14:53 10:03 Telemetry/MedSurg (observation) kdr kdr 14:53 10:03 Fair kdr kdr 14:53 10:03 an acute exacerbation kdr kdr 14:53 10:03 have improved kdr kdr 14:53 10:03 Standard kdr kdr 14:53 10:03 kdr kdr 14:53 10:03 Other seizures kdr kdr 14:53 10:03 Hypertensive heart disease without heart failure - poorly controlled kdr kdr 14:53 10:03 Chronic kidney disease and anemia kdr kdr 14:55 14:54 sdf kdr kdr 14:56 14:55 sdf kdr kdr 16:45 14:56 Yamini kdr rs5
--- NOTE | 2023-06-16 10:04 | ER ---
Nurse's Notes [facility] Name: Tyrone Lundy Age: 72 yrs Sex: Male : 1950 Arrival Date: 06/16/2023 Time: 07:35 Bed 5 Private MD: Diagnosis: Other seizures;Hypertensive heart disease without heart failure;Weakness Presentation: 06/16 07:40 Chief complaint: EMS states: reports seizure at approx 0600 today, called EMS hb because post ictal longer than usual. Hx of seizures, HTN, and CVA, takes Keppra. 20g R Hand. Coronavirus screen: At this time, the client does not indicate any symptoms associated with coronavirus-19. Ebola Screen: No symptoms or risks identified at this time. Initial Sepsis Screen: Does the patient meet any 2 criteria? No. Patient's initial sepsis screen is negative. Does the patient have a suspected source of infection? No. Patient's initial sepsis screen is negative. Risk Assessment: Do you want to hurt yourself or someone else? Patient reports no desire to harm self or others. Onset of symptoms was June 16, 2023. 07:40 Method Of Arrival: EMS: [facility] 07:40 Acuity: CHARLES 3 hb Historical: - Allergies: 07:42 No Known Allergies; hb - Home Meds: 07:42 Keppra Oral [Active]; hb 08:17 Metropolol [Active]; rs5 08:18 rosuvastatin oral [Active]; Lisinopril Oral [Active]; rs5 07:46 Nifedipine Oral [Active]; rs5 - PMHx: 07:42 Seizure; CVA; HTN; hb 07:46 Melanoma; rs5 - Immunization history:: Adult Immunizations unknown. - Social history:: Smoking status: Patient denies any tobacco usage or history of. Screenin:40 [facility] ED Fall Risk Assessment (Adult) History of falling in the last 3 months, rs5 including since admission No falls in past 3 months (0 pts) Confusion or Disorientation No (0 pts) Intoxicated or Sedated No (0 pts) Impaired Gait No (0 pts) Mobility Assist Device Used No (0 pt) Altered Elimination No (0 pt) Score/Fall Risk Level 0 - 2 = Low Risk Oriented to surroundings, Maintained a safe environment. 07:40 Abuse screen: Denies threats or abuse. Nutritional screening: No deficits noted. rs5 Tuberculosis screening: No symptoms or risk factors identified. Assessment: 07:46 General: Appears in no apparent distress. comfortable, Behavior is calm, cooperative. rs5 Pain: Denies pain. Neuro: Level of Consciousness is awake, alert, obeys commands, confused, Oriented to person, Plant Operations Manager are equal bilaterally Weakness in left in right in bilateral hand(s) Facial symmetry appears normal, Pupils are PERRLA, Pupil Size: 3 mm Seizure activity Patient is post-ictal at this time. Family states "he had a seizure this morning and he was post-ictal for a long time so we had him brought in". Cardiovascular: Heart tones S1 S2 present. Respiratory: Airway is patent Respiratory effort is even, unlabored, Respiratory pattern is regular, symmetrical. GI: Abdomen is flat, non-distended, Bowel sounds present X 4 quads. Abd is soft and non tender X 4 quads. : No signs and/or symptoms were reported regarding the genitourinary system. EENT: No signs and/or symptoms were reported regarding the EENT system. Derm: Skin graft noted to left chest. Family reports "He's had melanoma before and they removed it". Derm: Skin is pink, warm \\T\\ dry. Redness and petechia noted to left arm. Blood pressure on left arm. Musculoskeletal: Range of motion: intact in all extremities. 07:47 Reassessment: Blood pressure switched to right arm. Family at bedside. Family states rs5 "he has dementia and he's a bit confused now but that's his normal". 08:32 Reassessment: Pt back from CT. Home meds verified with family member. rs5 08:40 Reassessment: Patient and/or family updated on plan of care and expected duration. Pain rs5 level reassessed. Patient denies pain at this time. To bedside for med adm. 08:50 Reassessment: Pt cleaned of urine, clean brief applied, warm blankets provided for aa5 comfort. . 08:50 Reassessment: Patient and/or family updated on plan of care and expected duration. Pain rs5 level reassessed. 08:50 Neuro: Level of Consciousness is awake, alert, obeys commands, confused, Oriented to rs5 person. 09:53 Reassessment: No changes from previously documented assessment. Provider at bedside. rs5 10:53 Reassessment: Patient and/or family updated on plan of care and expected duration. Pain rs5 level reassessed. Patient denies pain at this time. To bedside with blanket per patient request. Pt stated "I'm cold". Neuro: Level of Consciousness is awake, alert, obeys commands, confused, Oriented to person. 12:15 Reassessment: Patient and/or family updated on plan of care and expected duration. Pain rs5 level reassessed. 13:16 Reassessment: Patient and/or family updated on plan of care and expected duration. Pain rs5 level reassessed. Reassessment: . Neuro: Level of Consciousness is awake, alert, obeys commands, Oriented to person. 14:00 Reassessment: Assisted pt in ambulating with a walker per MD orders. Pt tolerated it rs5 well, steady gait. 14:15 Reassessment: Patient and/or family updated on plan of care and expected duration. Pain rs5 level reassessed. Patient denies pain at this time. Pt cleaned of urine, clean brief applied, warm blankets provided for comfort. 15:30 Reassessment: Patient and/or family updated on plan of care and expected duration. Pain rs5 level reassessed. 16:02 Reassessment: Report given to JOSE MIGUEL Cerrato from [facility]. rs5 16:05 Reassessment: Patient and/or family updated on plan of care and expected duration. Pain rs5 level reassessed. 16:05 Neuro: Level of Consciousness is awake, alert, obeys commands, confused, Oriented to rs5 person. Vital Signs: 07:40 BP 162 / 99; Pulse 81; Resp 16; Temp 98.6(O); Pulse Ox 98% on R/A; Weight 81.65 kg; hb Height 6 ft. 2 in. ; Pain 0/10; 07:50 BP 168 / 87; Pulse 80; Resp 17; Temp 97.8(O); Pulse Ox 99% ; rs5 08:30 BP 175 / 88; Pulse 75; Resp 17; Pulse Ox 99% on R/A; rs5 09:20 BP 153 / 79; Pulse 98; Resp 18; Pulse Ox 99% ; rs5 10:35 BP 167 / 73; Pulse 66; Resp 17; Pulse Ox 99% ; rs5 11:25 BP 149 / 104; Pulse 70; Resp 18; Pulse Ox 99% on R/A; rs5 12:24 BP 155 / 84; Pulse 68; Resp 17; Pulse Ox 99% on R/A; rs5 13:30 BP 148 / 84; Pulse 69; Resp 17; Pulse Ox 99% on R/A; rs5 14:41 BP 157 / 100; Pulse 76; Resp 17; Pulse Ox 98% on R/A; rs5 15:39 BP 145 / 82; Pulse 73; Resp 17; Pulse Ox 99% on R/A; rs5 16:20 BP 152 / 85; Pulse 77; Resp 17; Pulse Ox 99% on R/A; rs5 07:40 Body Mass Index 23.11 (81.65 kg, 187.96 cm) hb 07:40 Pain Scale: Adult hb [place] Coma Score: 07:46 Eye Response: spontaneous(4). Motor Response: obeys commands(6). Verbal Response: rs5 confused(4). Total: 14. ED Course: 07:40 Patient arrived in ED. ds4 07:40 Madi Jackson MD is Attending Physician. kdr 07:40 Patient has correct armband on for positive identification. Placed in gown. Bed in low rs5 position. Call light in reach. Side rails up X2. Adult w/ patient. Seizure precautions initiated. 07:40 Maintain EMS IV. Dressing intact. Good blood return noted. Site clean \\T\\ dry. Gauge \\T\\ rs 5 site: 20g right hand. 07:42 Triage completed. hb 07:43 Arm band placed on. hb 08:14 CT Head C Spine In Process Unspecified. EDMS 08:32 XRAY Chest (1 view) In Process Unspecified. EDMS 08:56 William Villalpando, JOSE MIGUEL is Primary Nurse. rs5 10:00 Byron Armando MD is Hospitalizing Provider. kdr 14:38 initiated a transfer with Triston Mai Rn from the [facility]. eb 14:[address] Kc the neuro remote encoding operations supervisor for [facility] with Dr. Jackson for eb patient transfer consultation. 15:[address] Fajardo the hospitalist remote encoding operations supervisor for [facility] with Dr. Jackson or eb patient transfer consultation. 15:14 administrative approval given by Triston Ruiz Rn/ patient has been accepted to [facility] room 2227/ Dr. Kimmy Fajardo has accepted the patient in transfer/ report to be called to [phone]. 16:30 No provider procedures requiring assistance completed. Maintain EMS IV. Dressing rs5 intact. Good blood return noted. Site clean \\T\\ dry. Gauge \\T\\ site: 20g right hand. Administered Medications: 08:40 Drug: Aspirin PO Chewable Tablet 324 mg Route: PO; rs5 09:30 Follow up: Response: No adverse reaction rs5 11:56 Drug: Keppra IV 1000 mg Route: IV; Rate: calculated rate; Site: right hand; rs5 12:15 Follow up: Response: No adverse reaction rs5 Medication: 14:30 VIS not applicable for this client. rs5 Outcome: 10:03 Decision to Hospitalize by Provider. kdr 14:54 ER care complete, transfer ordered by MD. kdr 16:30 Transferred by ground EMS [facility]. to [facility]. rs5 16:30 Condition: stable rs5 16:30 Discharge instructions given to EMS, Instructed on the need for transfer, Demonstrated understanding of instructions. 16:45 Patient left the ED. rs5 Signatures: Dispatcher [employer] EDMS Madi Jackson MD MD [facility] Cierra Oviedo RN RN aa5 Justin Kasper ds4 Genoveva Danielle RN RN Taylor Houser William Villalpando RN RN rs5 Corrections: (The following items were deleted from the chart) 08:09 07:46 Neuro: Level of Consciousness is awake, alert, obeys commands, Oriented to rs5 person, Plant Operations Manager are equal bilaterally Weakness in left in right in bilateral hand(s) rs5 08:30 07:46 Derm: Skin is pink, warm \\T\\ dry. Redness noted to left arm rs5 rs5 08:30 07:46 Neuro: Level of Consciousness is awake, alert, obeys commands, confused, Oriented rs5 to person, Plant Operations Manager are equal bilaterally Weakness in left in right in bilateral hand(s) rs5 08:45 08:44 Reassessment: Patient and/or family updated on plan of care and expected rs5 duration. Pain level reassessed. Patient denies pain at this time. To bedside for bed adm. rs5 08:58 08:40 Reassessment: Patient and/or family updated on plan of care and expected rs5 duration. Pain level reassessed. Patient denies pain at this time. To bedside for bed adm. rs5 17:09 07:40 Maintain EMS IV. Dressing intact. Good blood return noted. Site clean \\T\\ dry. rs5 Gauge \\T\\ site: 20g left hand. rs5 17:11 17:09 Transferred by ground [facility]. to [facility], rs5 [facility], rs5 17:12 14:30 No provider procedures requiring assistance completed. rs5 rs5 17:12 14:30 Maintain EMS IV. Dressing intact. Good blood return noted. Site clean \\T\\ dry. rs5 Gauge \\T\\ site: 20g right hand. rs5 17:16 08:50 Reassessment: Patient and/or family updated on plan of care and expected rs5 duration. Pain level reassessed. Patient is alert, oriented x 3, equal unlabored respirations, skin warm/dry/pink. rs5 17:16 10:53 Reassessment: Patient and/or family updated on plan of care and expected rs5 duration. Pain level reassessed. Patient is alert, oriented x 3, equal unlabored respirations, skin warm/dry/pink. Patient denies pain at this time. To bedside with blanket per patient request. Pt stated "I'm cold". rs5 17:16 12:15 Reassessment: Patient and/or family updated on plan of care and expected rs5 duration. Pain level reassessed. Patient is alert, oriented x 3, equal unlabored respirations, skin warm/dry/pink. rs5 17:16 15:30 Reassessment: Patient and/or family updated on plan of care and expected rs5 duration. Pain level reassessed. Patient is alert, oriented x 3, equal unlabored respirations, skin warm/dry/pink. rs5
[2023-06-16] MEDS ORDERED: LEVETIRACETAM 500 MG/5 ML VIAL IV ONE ×2 (11:51→11:54)
[2023-06-16] MEDS ORDERED: NA CHLORIDE 0.9% 100 ML ONE (11:54)
--- NOTE | 2023-06-16 14:35 | EKG ---
Test Date: 2023-06-16 Test Time: 07:48:00 Charge Nurse: PELON MEASUREMENT RESULTS: Intervals: Rate: 75 [place]: QRSD: 142 QT: 432 QTc: 482 [place]: P: [place]: QRS: -28 T: 131 INTERPRETIVE STATEMENTS: Atrial fibrillation Left ventricular hypertrophy with QRS widening Cannot rule out Septal infarct, age undetermined T wave abnormality, consider lateral ischemia Abnormal ECG No previous ECG available for comparison Electronically Signed On 06-16-23 14:35:18 CDT by Naren Valenzuela
[2023-06-16 16:52] VITALS: TEMP 97.8
[2023-06-16 17:01] VITALS: BP 145/82; O2SAT 99
--- NOTE | 2023-06-16 20:29 | P.CNS ---
Date of Consult: 06/16/23
--- NOTE | 2023-06-16 22:28 | P.CNS ---
Date of Consult: 06/16/23 Reason for Consult: seizure, NSTEMI, elevated BNP; eval for admission Requesting Physician: Madi Jackson Chief Complaint: "seizure" History of Present Illness: 72yo M PMH: epilepsy, CVA, HTN, IPD/ subdural hematomas, mechanical aortic valve, afib on warfarin, HTN brought to ED by EMS due to "seizure" and prolonged post-ictal phase. states she walked into room and saw patient laying back in his recliner and noted some abnormal shaking movement of his leg, followed by shaking movements involving his other extremities. Patient was not responding to verbal stimuli as usual. states these movements were similar in appearance / reminiscent of his previous generalized tonic-clonic seizures - last episode was ~15yrs ago. Since then, he has had seizures, recently occurring every ~5 weeks, described as absence seizures. states he was in his usual state of health until this episode. Daughter reports she has noticed he has had some increase in difficulty with certain ADLs over the last ~1 week, requiring more assistance in feeding himself, when before he would be able to do it by himself. They recently moved from [place] of state ([place] He takes keppra 1000mg TID and Lamictal 250mg BID, and family report no missed doses recently, no fever/sick contacts at home, no diarrhea. Baseline: ambulatory, can feed self, and requires assistance with most of his ADLS. He has history of seizures, known chronic subdural hematomas. CKD4 with baseline Cr ~2.7-2.8. Family have been focusing on maximizing his quality of life, and he has been doing "ok" and stable for a few months, since he was last sick/hospitalized. In the ED, patient was noted to return back to or near his baseline. Bloodwork notable for mildly elevated troponin (68.1), mild hyponatremia (131), elevated BNP (9370), and elevated Cr (3.0), with baseline: ~2.8. CT head reportedly unchanged compared to prior comparison. ED physician requested consult for admission. Allergies No Known Allergies Allergy (Unverified 06/16/23 13:11) - Past Medical/Surgical History -: as noted in H&P Past Surgical History: Unable to obtain - Social History Smoking Status: Unknown if ever smoked Place of Residence: Home Review of Systems is unable to be obtained (full 10point ROS unable to be obtained accurately, reports some posterior head/neck pain, confused) Physical Examination Temp Pulse Resp BP Pulse Ox 97.8 F 73 17 145/82 H 06/16/23 07:50 06/16/23 15:39 06/16/23 15:39 06/16/23 15:39 General: Alert, Oriented x1, Cooperative, Confused HEENT: EOMI (grossly intact; unable to follow commands), Sclerae nonicteric Neck: Supple, No LAD Respiratory: Clear to auscultation bilaterally, Normal air movement Cardiovascular: No edema, Regular rate/rhythm, Systolic murmur Capillary refill: <2 Seconds Gastrointestinal: Soft and benign, Non-distended, No tenderness Musculoskeletal: No swelling, No erythema Integumentary: No rashes, No significant lesion Neurological: Normal speech, Cranial nerves 3-12 intact Laboratory Data (last 24 hrs) 06/16/23 06/16/23 07:56 07:56 WBC 5.80 Hgb 9.1 L Hct 25.5 L Plt Count 75 L Sodium 131 L Potassium 4.2 BUN 43 H Creatinine 3.02 H Glucose 110 H Magnesium 1.9 Total Bilirubin 0.4 AST 30 ALT 40 Alkaline Phosphatase 93 Physician Review Additional Text: Problem List Epilepsy with typical absence seizure, now with generalized tonic clonic seizure NSTEMI mild hypontremia, chronic elevated BNP CKD4 mechanical aortic valve on coumadin HTN CVA IPH / chronic subdural hematomas CT head done in ED reported no change compared to recent imaging. Etiology of this seizure uncertain; ?Ischemia vs toxic/metabolic. No obvious derangement in blood work, and no changes on neuro-imaging seen today that would lead to this seizure. Discussed with Neurologist it solutions sales consultant, no EEG machine available to rule out / in that this is truly a seizure. ~15yrs since he last had a tonic-clonic seizure Discussed with the ED physician, neuro [employer] sales consultant, and family. Given the lack of available resources / testing for >4 days (no EEG, MRI, echo, no mail list processor, no ICU bed), recommend transfer to tertiary care center for EEG/neuro eval. brought up possibly going home and more focus on quality of life. Briefly discussed general goals of care, and recommended if goal is further evaluate/workup this seizure / change from his baseline; recommend transfer to tertiary care center Time Spent Managing Pts care (In Minutes): 65
== END 2023-06-16 16:45 | disposition short-term general hospital (02) ==
LOC: ER 07:35
DX: G40.409 Other generalized epilepsy and epileptic syndromes, not intractable, without status epilepticus (principal); G40.A09 Absence epileptic syndrome, not intractable, without status epilepticus; I21.4 Non-ST elevation (NSTEMI) myocardial infarction; I12.9 Hypertensive chronic kidney disease with stage 1 through stage 4 chronic kidney disease, or unspecified chronic kidney disease; N18.4 Chronic kidney disease, stage 4 (severe); E87.1 Hypo-osmolality and hyponatremia; R79.89 Other specified abnormal findings of blood chemistry; Z86.73 Personal history of transient ischemic attack (TIA), and cerebral infarction without residual deficits; Z95.4 Presence of other heart-valve replacement; Z79.01 Long term (current) use of anticoagulants
CPT/HCPCS: 93005; 85025; 80048; 36415; 83735; 80076; 84484; 83880; 70450; 72125; 71045; 96374; 99285; J1953 ×2

== ENCOUNTER 2024-04-03 22:29 | Emergency (ER) | payer OTHER ==
[2024-04-03] MEDS ORDERED: ONDANSETRON 4 MG/2 ML VIAL ONE (22:34)
[2024-04-03] MEDS ORDERED: MORPHINE 4 MG/ML SYR ONE (22:35)
[2024-04-03] MEDS ORDERED: DIAZEPAM 10 MG/2 ML INJ SYRINGE ONE (23:05)
[2024-04-03] MEDS ORDERED: HYDROMORPHONE HCL 1 MG/ML INJ ONE (23:49)
[2024-04-04] MEDS ORDERED: HYDROMORPHONE HCL 1 MG/ML INJ ONE ×2 (03:51→08:25)
--- NOTE | 2024-04-04 05:41 | ER ---
Nurse's Notes [facility] Name: Tyrone Lundy Age: 73 yrs Sex: Male : 1950 Arrival Date: 04/03/2024 Time: 22:29 Bed DX3 Private MD: Diagnosis: Acute and chronic respiratory failure Presentation: 04/03 22:30 Coronavirus screen: At this time, the client does not indicate any symptoms associated jb4 with coronavirus-19. Ebola Screen: No symptoms or risks identified at this time. Initial Sepsis Screen:. Risk Assessment: Do you want to hurt yourself or someone else? Unable to obtain. Onset of symptoms was April 04, 2024. 22:30 Method Of Arrival: EMS: [facility] 22:30 Acuity: CHARLES 2 jb4 22:30 Chief complaint: EMS states: Pt is on hospice and family was told they needed to call [facility] for EMS. Pt has DNR in place. Historical: - Allergies: 22:30 No Known Allergies; jb4 - PMHx: 22:30 CVA; HTN; melanoma; Seizure; jb4 - Family history:: not pertinent. Assessment: 22:30 General: Appears distressed, Behavior is unresponsive. Neuro: Level of Consciousness is jb4 unresponsive. Cardiovascular: Patient's skin is warm and dry. Respiratory: Airway is patent Respiratory effort is labored, Respiratory pattern is agonal Sputum is bloody frothy. 23:15 Reassessment: Family is refusing vital sign monitoring. Only wants palliative care jb4 measures. Pt remains in respiratory distress. Bright red frothy sputum noted in NRB mask. 04/04 00:35 Reassessment: Pt appears more at rest. jb4 02:03 Reassessment: Pt appears to be resting peacefully in bed with family at the bedside. jb4 02:14 Reassessment: attempted to call [facility] [place]. [facility] reports they only take referrals jb on patients on mechanical ventilation with a pulse or patients without a pulse. 03:36 Reassessment: Patient appears in no apparent distress at this time. No changes from jb4 previously documented assessment. 04:55 Reassessment: Patient appears in no apparent distress at this time. No changes from jb4 previously documented assessment. 06:15 Reassessment: at the bedside again refuses vital signs or monitoring, also refuses jb4 IV access for medication administration. Pt continues to rest comfortably in bed. 07:05 Reassessment: Report received from JOSE MIGUEL Cox. Pt currently with eyes closed, pt's aa5 family at bedside. Respirations are relaxed, even, and patterns is hypoventilation. Skin is pink/warm/dry. Pt non-verbal at this time. . 08:10 Reassessment: Pt moved from ER stretcher to hospital bed for comfort, pt tolerated aa5 well. Brief pad changed, small amount of urine noted, clean pad applied. Pt's continues to states she does not want pt to be turned in bed and does not want VS to be obtained. Central monitoring not in use per pt's request. . 08:12 Reassessment: Mohan Alvarez, MARILYNN contacted about need for medication for comfort. Pt with aa5 eyes open at this time, able to move head and arms, coughing intermittently, appears uncomfortable. No admission orders at this time. REHABILITATION SERVICES AIDE states pending [facility] nurse for evaluation of need for inpatient hospice. . 08:15 Reassessment: [facility] hospice nurse (Aubree Traylor) at bedside, contacted pillowcase sewer, aa5 hospice nurse spoke to Jennifer from case management. . 08:38 Reassessment: Pt appears comfortable, with eyes closed, pt's in bed with patient. aa5 . Respiratory: Airway is patent Respiratory effort is even, relaxed, Respiratory pattern is hypoventilation. 09:40 Reassessment: Awaiting admission orders by Hospice doctor for patient to receive room aa5 assignment. Pt's family aware. . 10:00 Reassessment: Pt remains with eyes closed, respirations are even, relaxed, and pattern aa5 is hypoventilation. . Vital Signs: 04/03 22:30 jb4 04/04 07:05 Resp 8 S; aa5 08:25 Resp 10 S; aa5 09:20 Resp 7 S; aa5 10:00 Resp 6 S; aa5 04/03 22:30 family refused jb4 04/04 07:05 02 via non-rebreather. aa5 Jm Coma Score: 03:47 Eye Response: to pain(2). Motor Response: withdraws from pain(4). Verbal Response: sp4 none(1). Total: 7. ED Course: 04/03 22:30 Patient arrived in ED. jj6 22:30 Arm band placed on right wrist. jb4 22:32 Orlando Galvin MD is Attending Physician. sp4 04/04 00:34 Triage completed. jb4 03:52 Obed Pierre, RN is Primary Nurse. jb4 05:40 Byron Armando MD is Hospitalizing Provider. sp4 08:10 Patient did not have IV access during this emergency room visit. aa5 12:33 Primary Nurse role handed off by Obed Pierre RN hb 12:33 Attending Physician role handed off by Orlando Galvin MD 12:36 Orlando Galvin MD is Attending Physician. aa5 Administered Medications: 04/03 22:40 Drug: morphine IM 4 mg IM once Route: IM; Site: left deltoid; jb4 22:40 Drug: Zofran IM 4 mg IM once Route: IM; Site: left vastus lateralis; jb4 22:50 CANCELLED (Physician Discretion): diazepam5 mg IM once sp4 23:15 Drug: Diazepam IM 10 mg IM once Route: IM; Site: left vastus lateralis; jb4 23:55 Drug: HYDROmorphone IM 1 mg IM once Route: IM; Site: left vastus lateralis; jb4 04/04 04:03 Drug: HYDROmorphone IM 1 mg IM once Route: IM; Site: right vastus lateralis; jb4 08:28 Drug: HYDROmorphone IM 1 mg IM once Route: IM; Site: left vastus lateralis; aa5 08:38 Follow up: Response: No adverse reaction; Marked relief of symptoms aa5 Outcome: 05:40 Decision to Hospitalize by Provider. sp4 10:18 Admitted to ICU accompanied by nurse, accompanied by tech, family with patient, via aa5 stretcher, with oxygen, with chart, Report called to JOSE MIGUEL Tan 10:18 Condition: stable 10:18 Instructed on the need for admit, To pt's 10:18 Discharged to Inpatient hospice as inpatient. aa5 10:20 Patient left the ED. aa5 Signatures: Cierra Oviedo RN RN aa5 Genoveva Danielle RN RN Obed Pierre RN RN jb4 Eliane Najera jj6 Orlando Galvin MD MD sp4 Corrections: (The following items were deleted from the chart) 08:12 Reassessment: Mohan Alvarez, REHABILITATION SERVICES AIDE contacted about need for medication for comfort. No aa5 admission orders at this time. REHABILITATION SERVICES AIDE states pending [facility] nurse for evaluation of need for inpatient hospice. . aa5 46 07:05 Reassessment: Report received from JOSE MIGUEL Cox. Pt currently with eyes closed, pt's aa5 family at bedside. Respirations are relaxed, even, and patterns is hypoventilation. Skin is pink/warm/dry. aa5 08:25 Reassessment: Pt appears comfortable, with eyes closed, pt's in bed with aa5 patient. . aa5 08:25 Respiratory: Airway is patent Respiratory effort is even, relaxed, Respiratory aa5 pattern is hypoventilation aa5 10:41 Patient left the ED. aa5 aa5 07:05 Resp 8bpm; Spontaneous; aa5 aa5 12:37 12:35 Discharge ordered by . aa5 aa5 12:37 12:36 Patient left the ED. aa5 aa5
--- NOTE | 2024-04-04 05:41 | EDPHYS ---
Physician Documentation [facility] Name: Tyrone Lundy Age: 73 yrs Sex: Male : 1950 Arrival Date: 04/03/2024 Time: 22:29 Bed DX3 Private MD: ED Physician Orlando Galvin HPI: 04/03 22:45 This 73 yrs old Male presents to ER via Unassigned with complaints of sp4 Breathing Difficulty. 04/04 03:47 73-year-old male who is on hospice secondary to multiple medical conditions presents sp4 with EMS from home after he developed respiratory distress. Patient was reported to be spitting up bloody form. Patient has out of hospital DNR. On arrival after discussion with family family requested that no interventions except for comfort care. Family requested medications for comfort such as opiates and benzodiazepines and no intervention except for oxygen mask. Patient has past medical history of CVA, hypertension, melanoma, seizures, dementia.. Historical: - Allergies: 04/03 22:30 No Known Allergies; jb4 - PMHx: 22:30 CVA; HTN; melanoma; Seizure; jb4 - Family history:: not pertinent. ROS: 04/04 03:47 Constitutional: Positive for respiratory distress and physical debility sp4 All other systems are negative, Exam: 03:47 Constitutional: Frail elderly male in moderate to severe respiratory distress, bloody sp4 foamy cough, dyspnea tachypnea, moderate to severe physical deconditioning, nonverbal male, incontinent of bowel and bladder. Head/Face: Normocephalic, atraumatic. Eyes: Pupils equal round and reactive to light, ENT: Nares patent. No nasal discharge, no septal abnormalities noted. Tympanic membranes are normal and external auditory canals are clear. Oropharynx with copious bloody foam, signs of pulmonary edema with bloody sputum Neck: Trachea midline, no thyromegaly or masses palpated, and no cervical lymphadenopathy. Chest/axilla: Normal chest wall appearance and motion. Nontender with no deformity. No lesions are appreciated. Cardiovascular: Tachycardia , No gallops, murmurs, or rubs. Normal PMI, no JVD. No pulse deficits. Respiratory: Lungs have equal breath sounds bilaterally, bilateral moderate to severe crackles indicative of pulmonary edema. Tachypnea and retractions, Abdomen/GI: Soft, No distension or tympany. Back: No spinal tenderness. No costovertebral tenderness. Male : Normal genitalia with no discharge or lesions. Incontinent of bladder Skin: Warm, dry with generalized pallor MS/ Extremity: Pulses equal, diffuse pallor, moderate to severe physical deconditioning with muscular atrophy. Neuro: Nonverbal patient, moderate to severe respiratory distress limits examination. Appears to move all extremities. Vital Signs: 04/03 22:30 jb4 04/04 07:05 Resp 8 S; aa5 08:25 Resp 10 S; aa5 09:20 Resp 7 S; aa5 10:00 Resp 6 S; aa5 04/03 22:30 family refused jb4 04/04 07:05 02 via non-rebreather. aa5 [place] Coma Score: 03:47 Eye Response: to pain(2). Motor Response: withdraws from pain(4). Verbal Response: sp4 none(1). Total: 7. MDM: 04/03 22:32 Patient medically screened. sp4 04/04 03:53 Differential diagnosis: CHF exacerbation, Chronic Obstructive Pulmonary Disease sp4 Myocardial Infarction pneumonia, Pneumothorax pulmonary edema. Data reviewed: vital signs, nurses notes, EMS record, old medical records. ED course: Patient currently on hospice care for multiple medical conditions. Patient arrives in moderate to severe respiratory distress with signs of pulmonary edema with bloody sputum. I have explained to the family specifically the patient's , that interventions would not bring about recovery. I have strongly advised not to pursue any interventions and not to revoke the hospice. Patient's does agree and she requested no interventions except for the medicines for comfort care. Patient was given morphine intramuscular, Zofran intramuscular, Valium intramuscular, also 2 doses of hydromorphone intramuscular as well. . 04/04 09:52 Order name: Social Service Consult EDMS Administered Medications: 04/03 22:40 Drug: morphine IM 4 mg IM once Route: IM; Site: left deltoid; jb4 22:40 Drug: Zofran IM 4 mg IM once Route: IM; Site: left vastus lateralis; jb4 22:50 CANCELLED (Physician Discretion): diazepam5 mg IM once sp4 23:15 Drug: Diazepam IM 10 mg IM once Route: IM; Site: left vastus lateralis; jb4 23:55 Drug: HYDROmorphone IM 1 mg IM once Route: IM; Site: left vastus lateralis; jb4 04/04 04:03 Drug: HYDROmorphone IM 1 mg IM once Route: IM; Site: right vastus lateralis; jb4 08:28 Drug: HYDROmorphone IM 1 mg IM once Route: IM; Site: left vastus lateralis; aa5 08:38 Follow up: Response: No adverse reaction; Marked relief of symptoms aa5 Disposition Summary: 04/04/24 12:35 Discharge Ordered Notes: Location: Other(04/04/24 12:35) aa5 Condition: Critical(04/04/24 12:35) aa5 Diagnosis - Acute and chronic respiratory failure(04/04/24 12:35) aa5 Forms: - Medication Reconciliation Form aa5 - Antibiotic Education aa5 - Prescription Opioid Use aa5 - Patient Portal Instructions aa5 - Leadership Thank You Letter aa5 Signatures: Dispatcher [employer] EDMS Cierra Oviedo RN RN aa5 Mohan Alvarez FNP-C COLORECTAL SURGEON-Cla1 Obed Pierre RN RN jb4 Mikey Mobley RN RN esme7 Orlando Galvin MD MD sp4 Tania Benavides jr12 Corrections: (The following items were deleted from the chart) 04/03 22:50 22:49 Diazepam IM 5 mg IM once ordered. sp4 sp4 04/04 07:37 05:40 Telemetry/MedSurg (Inpatient) sp4 jl7 07:37 05:40 sp4 jl7 09:57 07:37 [facility] ER HOLD jl7 jr12 09:57 07:37 ERHOLD- jl7 jr12 12:33 05:40 Inpatient Admission sp4 hb 12:33 05:40 Byron Armando sp4 hb 12:33 05:40 Guarded sp4 hb 12:33 05:40 new sp4 hb 12:33 05:40 have worsened sp4 hb 12:33 05:40 Standard sp4 hb 12:33 05:40 Acute and chronic respiratory failure sp4 hb 12:33 05:40 Altered mental status, acute delirium, pulmonary edema, inpatient hospice sp4 hb 12:33 09:57 Intensive Care Unit jr12 hb 12:33 09:57 3- jr12 hb
[2024-04-04] MEDS ORDERED: MORPHINE 2 MG/ML SYR IM PRN (09:40)
[2024-04-04] MEDS ORDERED: LORazepam 2 MG/ML VIAL IM PRN (09:40)
[2024-04-04] MEDS ORDERED: ONDANSETRON 4 MG/2 ML VIAL IM PRN (09:40)
--- NOTE | 2024-04-04 09:45 | P.CNS ---
Date of Consult: 04/04/24 73-year-old male with history of dementia, previous CVA, CKD 4 presented to the emergency department in respiratory distress, he is on outpatient hospice with [facility]. Upon arrival to hospital patient family present stating they did not want any evaluation or intervention, only comfort measures. Patient was medicated with intramuscular medications including Dilaudid and Valium for symptomatic management as they declined an IV placement since patient is a very difficult stick and this would bring him with greater discomfort, family did not feel comfortable taking him back home on hospice as they felt his passing may be imminent and preferred for arrangement of inpatient hospice. I was initially consulted for admission to hospitalist service/comfort measures to arrange for inpatient hospice. After further discussion with family and staff with [facility] hospice as well as case management it was determined that [facility] hospice does have a contract with the hospital and there were attempts made to determine if there is a physician employed within that has privileges at our facility, Dr. Gómez graciously agreed to admit the patient for inpatient hospital services with [facility]. [facility].
--- NOTE | 2024-04-04 09:49 | P.HP ---
Certification for Inpatient Patient admitted to: Inpatient With expected LOS: >2 Midnights Patient will require the following post-hospital care: Hospice Practitioner: I am a practitioner with admitting privileges, knowledge of patient current condition, hospital course, and medical plan of care. Services: Services provided to patient in accordance with Admission requirements found in Title 42 Section 412.3 of the Code of Federal Regulations Patient History Date of Service: 04/04/24 Reason for admission: Inpatient hospice for end stage cardiac dz with acute respiratory failure History of Present Illness: Patient is a 73yo gentleman who was placed on [facility] hospice for end-stage cardiomyopathy. Patient has chronic kidney disease, artificial heart valve, hemorrhagic stroke, and progressive failure to thrive. Patient has declined substantially over the last couple of years. 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 They ended up placing him on hospice, if patient has been getting hospice care at home. However, yesterday he started coughing and was congested. The had left the room for a second, and when she came back he was coughing profusely and since that time he has become lethargic and altered. Patient's stated that she did not want any aggressive measures performed at this time. She wanted to admit him to inpatient hospice. Patient will be admitted to inpatient hospice for further care. I was able to speak to patient's hospice nurse, Aubree with [facility] and I agreed to admit the patient to my service so they could keep him comfortable and help with his transition as he is declining and unlikely to survive over the next 24 to 48 hours. Allergies No Known Allergies Allergy (Unverified 06/16/23 13:11) - Past Medical/Surgical History -: Cardiomyopathy -: Chronic kidney disease -: Artificial heart valve -: Hemorrhagic stroke -: Dementia Past Surgical History: Unable to obtain - Family History Father Family History: Reviewed- Non-Contributory - Social History Smoking Status: Unknown if ever smoked Alcohol use: No CD- Drugs: No Review of Systems is unable to be obtained Physical Examination - Physical Exam General: Unresponsive, Other (Vital signs have been reviewed) HEENT: Atraumatic, PERRLA, Mucous membr. moist/pink, EOMI, Sclerae nonicteric Neck: Supple, 2+ carotid pulse no bruit, No LAD, Without JVD or thyroid abnormality Respiratory: Diminished Cardiovascular: Other (Tachycardic) Gastrointestinal: Normal bowel sounds, Soft and benign, Non-distended, No tenderness Musculoskeletal: No clubbing, No swelling, No tenderness Integumentary: No rashes Neurological: Normal gait, Normal speech, Normal strength at 5/5 x4 extr, Normal tone, Normal affect Lymphatics: No axilla or inguinal lymphadenopathy Assessment & Plan - Problems (Diagnosis) (1) End stage congestive heart failure Status: Acute (2) Acute respiratory distress Status: Acute (3) Admission for hospice care Status: Acute (4) Chronic kidney disease Status: Acute (5) History of artificial heart valve Status: Acute (6) Hemorrhagic stroke Status: Acute - Plan Patient was admitted for inpatient hospice care. However, patient had to be admitted to the hospice and we will discharge him from here. Patient will be placed on inpatient hospice in the ICU at this time. Patient is not expected to survive over the next 24 to 48 hours. Will continue with comfort measures with Ativan and morphine and scopolamine patch for secretions. O2 for comfort. is at bedside and she is agreeable with the plan. Patient has a do not attempt resuscitation. Will proceed with comfort measures and hopefully we can help w ith patient's transition as his clinical condition continues to decline. Discharge Plan: Other ( home) - Advance Directives Does patient have a Living Will: No Does patient have a Durable POA for Healthcare: No - Code Status/Comfort Care Comfort Measures: Hospice Care Critical Care: No Time Spent Managing PTS Care (In Minutes): 45 Physician Discharge Instructions: Discharge to inpatient hospice Diet: Comfort fo Activity: Bedrest Followup: NONE,NONE [Primary Care Provider] - Prvt MD As Needed Time spent managing pt's care (in minutes): 45
[2024-04-04] MEDS ORDERED: SCOPOLAMINE HYDROBROMIDE PATCH TD ONE (11:00)
[2024-04-04] MEDS ORDERED: MORPHINE 4 MG/ML SYR IM PRN (11:02)
== END 2024-04-04 12:36 | disposition hospice, inpatient (51) ==
LOC: ER 22:29 → UNDOADMIN 04-04 09:40 → ERHOLD 04-04 09:40 → ER 04-04 12:16
DX: J96.20 Acute and chronic respiratory failure, unspecified whether with hypoxia or hypercapnia (principal)
CPT/HCPCS: 96372; 99285; J3360; J1170 ×3; J2405; J2270